=== PATIENT | female | born 1960 | race Caucasian/White ===

== ENCOUNTER 2022-11-22 11:12 | Outpatient (REF) | payer OTHER, SELFPAY ==
[2022-11-22 13:15] LABS: Alanine Aminotransferase 18 U/L (0-31); Albumin Level 4.6 g/dL (3.5-5.0); Alkaline Phosphatase 75 U/L (39-117); Anion Gap 13 (12-20); Aspartate Amino Transferase 20 U/L (5-31); Bilirubin Total 0.6 mg/dL (0.0-1.0); Blood Urea Nitrogen 15 mg/dL (9-16); Calcium 9.8 mg/dL (8.4-10.2); Carbon Dioxide 27 mmol/L (22-29); Chloride 103 mmol/L (96-108); Cholesterol 199 mg/dL; Estimated Glomerular Filt Rate > 60; Glucose Fasting 102 mg/dL (60-99); HDL Cholesterol 62 mg/dL; LDL Cholesterol Calculated 122 mg/dl; Potassium 4.1 mmol/L (3.3-5.1); Sodium 139 mmol/L (135-145); Triglycerides 79 mg/dL
[2022-11-27 14:53] LABS: Apolipoprotein B 93 mg/dL (<90)
== END 2022-11-22 11:13 | disposition home or self-care (01) ==
LOC: HO.LAB 11:12
PROVIDERS: PCP Internal Medicine; Visit Provider Internal Medicine
DX: Z00.00 Encounter for general adult medical examination without abnormal findings (principal); E78.5 Hyperlipidemia, unspecified; R73.9 Hyperglycemia, unspecified; M06.9 Rheumatoid arthritis, unspecified; E55.9 Vitamin D deficiency, unspecified; R25.1 Tremor, unspecified
CPT/HCPCS: 36415; 80053; 80061; 82172; 82306

== ENCOUNTER 2023-03-13 09:37 | Outpatient (REF) | payer OTHER, SELFPAY ==
[2023-03-13 10:01] LABS: MANUAL DIFF FLAG NO
[2023-03-13 10:36] LABS: Basophils Percent Auto 0.4 % (0-2); Eosinophils Absolute Auto 0.4 X10*3/uL (0.0-0.4); Eosinophils Percent Auto 8.3 % (0-4); Hematocrit 44.8 % (37.0-47.0); Lymphocytes Absolute Auto 2.1 X10*3/uL (1.2-4.9); Lymphocytes Percent Auto 39.7 % (20-40); Mean Corpuscular HGB Conc 31.3 g/dl (31.0-35.0); Mean Corpuscular Hemoglobin 27.1 pg (27.0-33.0); Mean Corpuscular Volume 86.7 fL (80.0-98.0); Mean Platelet Volume 10.6 fL (9.4-12.3); Monocytes Absolute Auto 0.4 X10*3/uL (0.1-1.2); Monocytes Percent Auto 7.8 % (2-11); Neutrophils Absolute Auto 2.3 x10*3/uL (2.0-8.3); Neutrophils Percent Auto 43.8 % (45-73); Platelet Count 294 X10*3/uL (160-400); Red Blood Count 5.17 X10*6/uL (4.20-5.50); Red Cell Distribution Width 13.3 % (11.0-16.0); White Blood Count 5.3 X10*3/uL (4.8-10.8)
[2023-03-13 11:00] LABS: Estimated Average Glucose 97 mg/dL
[2023-03-13 11:16] LABS: C Reactive Protein 0.26 mg/dL (< or = 0.50); Erythrocyte Sedimentation Rate 10 MM/HR (0-20)
[2023-03-13 11:21] LABS: Alanine Aminotransferase 20 U/L (0-31); Albumin Level 4.5 g/dL (3.5-5.0); Alkaline Phosphatase 86 U/L (39-117); Anion Gap 13 (12-20); Aspartate Amino Transferase 22 U/L (5-31); Bilirubin Total 0.6 mg/dL (0.0-1.0); Blood Urea Nitrogen 13 mg/dL (9-16); Carbon Dioxide 28 mmol/L (22-29); Chloride 104 mmol/L (96-108); Cholesterol 209 mg/dL; Estimated Glomerular Filt Rate > 60; Glucose Fasting 99 mg/dL (60-99); HDL Cholesterol 59 mg/dL; LDL Cholesterol Calculated 133 mg/dl; Potassium 4.4 mmol/L (3.3-5.1); Sodium 141 mmol/L (135-145); Total Protein 6.9 g/dL (6.5-8.0); Triglycerides 85 mg/dL
[2023-03-13 11:27] LABS: Appearance Urine Clear; Color Urine Yellow; Glucose Urine UA Negative (Negative); Leukocyte Esterase Urine Negative (Negative); Nitrite Urine Negative (Negative); PH 6.5 (5.0-9.0); Specific Gravity - Urine <= 1.005 (1.005-1.025); Urine Blood Negative (Negative); Urine Ketones Negative (Negative); Urine Protein Negative (Neg-Trace)
[2023-03-13 11:35] LABS: Bacteria Urine None Seen (None Seen); Hyaline Casts Urine 0-2 /LPF (0-2); RBC Urine 0-2 /HPF (0-2); Squamous Epithelial Cell Urine 0-2 /HPF (0-2); WBC Urine 0-5 /HPF (0-5)
[2023-03-13 12:37] LABS: Creatinine Urine 13.17 mg/dL; Microalbumin Urine < 5.0 mg/L
== END 2023-03-13 09:38 | disposition home or self-care (01) ==
LOC: HO.LAB 09:37
PROVIDERS: Absent Provider Internal Medicine; PCP Internal Medicine; Visit Provider Internal Medicine Rheumatology
DX: Z00.00 Encounter for general adult medical examination without abnormal findings (principal); R73.9 Hyperglycemia, unspecified; E78.5 Hyperlipidemia, unspecified; E55.9 Vitamin D deficiency, unspecified; M06.9 Rheumatoid arthritis, unspecified; Z79.899 Other long term (current) drug therapy
CPT/HCPCS: 36415; 80053; 80061; 81001; 82043; 83036; 85025; 85652; 86140

== ENCOUNTER 2023-09-18 08:44 | Outpatient (REF) | payer OTHER, SELFPAY ==
[2023-09-18 09:15] LABS: MANUAL DIFF FLAG NO
[2023-09-18 09:27] LABS: Basophils Percent Auto 0.5 % (0-2); Eosinophils Absolute Auto 0.1 X10*3/uL (0.0-0.4); Hematocrit 44.2 % (37.0-47.0); Hemoglobin 13.8 g/dl (12.0-16.0); Imm Gran Abs Auto 0.01 X10*3/uL (0.00-0.03); Imm Gran Pct Auto 0.2 % (0.0-0.4); Lymphocytes Absolute Auto 1.9 X10*3/uL (1.2-4.9); Lymphocytes Percent Auto 44.9 % (20-40); Mean Corpuscular HGB Conc 31.2 g/dl (31.0-35.0); Mean Corpuscular Hemoglobin 27.2 pg (27.0-33.0); Mean Corpuscular Volume 87.2 fL (80.0-98.0); Monocytes Absolute Auto 0.3 X10*3/uL (0.1-1.2); Monocytes Percent Auto 7.2 % (2-11); Neutrophils Absolute Auto 1.9 x10*3/uL (2.0-8.3); Neutrophils Percent Auto 44.2 % (45-73); Platelet Count 246 X10*3/uL (160-400); Red Blood Count 5.07 X10*6/uL (4.20-5.50); Red Cell Distribution Width 13.2 % (11.0-16.0); White Blood Count 4.3 X10*3/uL (4.8-10.8)
[2023-09-18 09:49] LABS: Alanine Aminotransferase 19 U/L (0-31); Albumin Level 4.3 g/dL (3.5-5.0); Alkaline Phosphatase 64 U/L (39-117); Anion Gap 10 (12-20); Aspartate Amino Transferase 20 U/L (5-31); Bilirubin Total 0.6 mg/dL (0.0-1.0); Blood Urea Nitrogen 18 mg/dL (9-16); C Reactive Protein 0.27 mg/dL (< or = 0.50); Calcium 9.6 mg/dL (8.4-10.2); Carbon Dioxide 29 mmol/L (22-29); Chloride 107 mmol/L (96-108); Cholesterol 181 mg/dL (<200); Estimated Glomerular Filt Rate > 60; Glucose Fasting 97 mg/dL (60-99); HDL Cholesterol 71 mg/dL (>40); LDL Cholesterol Calculated 101 mg/dL (<100); Potassium 4.1 mmol/L (3.3-5.1); Sodium 142 mmol/L (135-145); Total Protein 7.2 g/dL (6.5-8.0); Triglycerides 49 mg/dL (<150)
[2023-09-18 09:53] LABS: Alanine Aminotransferase 18 U/L (0-31); Aspartate Amino Transferase 19 U/L (5-31); Estimated Glomerular Filt Rate > 60
[2023-09-18 10:08] LABS: Vitamin D 25-OH Total 54.3 ng/mL (>30)
[2023-09-18 10:20] LABS: Erythrocyte Sedimentation Rate 8 MM/HR (0-20)
== END 2023-09-18 08:45 | disposition home or self-care (01) ==
LOC: HO.LAB 08:44
PROVIDERS: Absent Provider Internal Medicine Rheumatology; PCP Internal Medicine; Visit Provider Internal Medicine
DX: M05.9 Rheumatoid arthritis with rheumatoid factor, unspecified (principal); E55.9 Vitamin D deficiency, unspecified; R73.9 Hyperglycemia, unspecified; E78.5 Hyperlipidemia, unspecified
CPT/HCPCS: 36415; 80053; 80061; 82306; 82565; 84450; 84460; 85025; 85652; 86140

== ENCOUNTER 2023-09-25 10:16 | Outpatient (AMB) | payer OTHER, SELFPAY ==
--- NOTE | 2023-09-25 10:34 | MHC.PC.OV ---
Vital Signs 09/25/23 10:38 Height 5 ft 6 in Weight 143 lb BMI 23.1 BP 112/72 Blood Pressure Location Rt brachial Position Sitting Pulse 70 Pulse Source Pulse Oximeter Pulse Oximetry (%) 98 Oxygen Delivery Method Room Air Intake Visit Reasons: PE Allergies clarithromycin [From Biaxin] Allergy (Unknown, Verified 09/25/23 10:38) Insomnia Medication List - Last Reconciled 09/25/23 by Ling Kellogg MD cholecalciferol (vitamin D3) 25 mcg PO DAILY estradiol 0.01%(0.1mg/gram) (Estrace) 1 g vaginal 2XW leflunomide 10 mg PO DAILY magnesium oxide 500 mg PO DAILY mv,Ca,ir,Jy-GA-nzz-gel-stephen-PAB (Body, Hair, Skin and Nails) PO omega-3 fatty acids 500 mg PO DAILY ondansetron HCl 4 mg PO BEDTIME PRN 4 days pravastatin 40 mg PO DAILY propranolol 20 mg PO BID Tobacco use date assessed: 03/18/23 Fall risk assessment: No Falls in past year Last assessed Fall Risk: 09/25/23 Dental Screening Dental Screen Date: 09/25/23 Did you have a dental visit in the last 12 months?: Yes Did you have a dental problem in the last 6 months where you did not have access to dental care?: No Was dental information given to patient?: Patient has dentist HPI PE HPI Details Pt presents for PE PFSH Medical History Tremor Normal breast exam Carpal tunnel syndrome Palpitations Anxiety Hyperglycemia Right hand weakness Hyperlipidemia Annual physical exam Osteoarthritis Rheumatoid arthritis Surgical History H/O colonoscopy Social History Housing: House Alcohol intake: current Alcohol intake frequency: a few times a week Patient Tobacco Use Status: Never used Tobacco e-Cigarette/Vaping Use: Never Used Current occupational status: retired Cognitive needs: No Hearing needs: No Vision needs: Yes Questionnaire Thrive Questionnaire Date Thrive assessed: 09/25/23 I am a: Patient What is your living situation today?: I have a steady place to live Within the past 12 months, did the food you bought not last and you didn't have the money to get more?: Never true Within the past 12 months, did you worry whether your food would run out before you got money to buy more?: Never true Do you have trouble paying for medicines?: No Do you have trouble getting transportation to medical appointments?: No Do you have trouble paying your heating and electricity bill?: No Do you have trouble taking care of your child, family member or friend?: No Do you have trouble with day-to-day activities such as bathing, preparing meals, shopping, managing finances, etc.?: No Are you currently unemployed and looking for a job?: No Are you interested in more education?: No AUDIT C Alcohol Use Questionnaire (AUDIT-C) 1. How often do you have a drink containing alcohol?: Monthly or less 2. How many drinks containing alcohol do you have on a typical day when you are drinking?: 1 or 2 3. How often do you have six or more drinks on one occasion?: Never Total Score: 1 Score Reviewed/Action Taken: No JEANNIE-7 AMB Questionnaire JEANNIE-7 Date JEANNIE - 7 assessed: 09/25/23 Source: Developed by Drs. Iron Garza, Taniya Lyons, John Reid and colleagues, with an educational allan from [employer]. JEANNIE-7 Assessment Billing JEANNIE-7 Assessment Tool: pt declined-do not bill Review of Systems Const All systems reviewed & are unremarkable except as noted in HPI and below Reports no additional complaints Eyes Reports no additional complaints ENT Reports no additional complaints Card Reports no additional complaints Resp Reports no additional complaints GI Reports no additional complaints Reports no additional complaints Physical exam (Primary Care) Vital Signs: Last Vital Signs Pulse 70 09/25/23 10:38 BP 112/72 09/25/23 10:38 Pulse Ox 98 09/25/23 10:38 Oxygen Delivery Method Room Air 09/25/23 10:38 BMI result Body Mass Index 23.1 Tobacco/Smoking Status: Tobacco use Status Tobacco use date assessed 03/18/23 09/25/23 10:35 Patient Tobacco Use Status Never used Tobacco 09/25/23 10:35 e-Cigarette/Vaping Use Never Used 09/25/23 10:35 Thrive Assessment: Date of Thrive Assessment Date Thrive assessed 09/25/23 09/25/23 11:10 Const General: no acute distress HENMT Ears: hearing grossly normal bilaterally Mouth: Normal oral and palatal mucosa present Eyes General: appearance normal, both eyes and all related structures Neck Neck: Yes no lymphadenopathy and Yes supple Resp Effort & Inspection: normal respiratory effort Auscultation: clear to auscultation bilaterally Cardio Rhythm: regular rhythm Heart sounds: S1 normal heart sound present and S2 normal heart sound present GI Inspection: Yes normal to inspection Palpation (GI): Soft to palpation Percussion: Yes normal to percussion Auscultation: normal bowel sounds Assessment and Plan Assessment & Plan (1) Hyperglycemia: Code(s): R73.9 - Hyperglycemia, unspecified Plan: CONTINUE ADA DIET REGULAR EXERCISE FOLLOW-UP IN 6 MONTHS WITH A FASTING LABS BEFORE (2) Annual physical exam: Code(s): Z00.00 - Encounter for general adult medical examination without abnormal findings Plan: Well-balanced diet and regular physical activity discussed with the patient. She is up-to-date with the mammogram colonoscopy and Pap smear by [employer] (3) Hyperlipidemia: Code(s): E78.5 - Hyperlipidemia, unspecified Plan: Continue pravastatin (4) Vitamin D deficiency: Code(s): E55.9 - Vitamin D deficiency, unspecified Plan: Continue vitamin-D Orders: Orders Comprehensive [place]. Panel Fast 6 Months E55.9 - Vitamin D deficiency, unspecified, E78.5 - Hyperlipidemia, unspecified, R73.9 - Hyperglycemia, unspecified, Z00.00 - Encounter for general adult medical examination without abnormal findings Complete Blood Count Auto Diff 6 Months E55.9 - Vitamin D deficiency, unspecified, E78.5 - Hyperlipidemia, unspecified, R73.9 - Hyperglycemia, unspecified, Z00.00 - Encounter for general adult medical examination without abnormal findings Lipid Panel 6 Months E55.9 - Vitamin D deficiency, unspecified, E78.5 - Hyperlipidemia, unspecified, R73.9 - Hyperglycemia, unspecified, Z00.00 - Encounter for general adult medical examination without abnormal findings TSH reflex Free T4 6 Months E55.9 - Vitamin D deficiency, unspecified, E78.5 - Hyperlipidemia, unspecified, R73.9 - Hyperglycemia, unspecified, Z00.00 - Encounter for general adult medical examination without abnormal findings Hemoglobin A1c 6 Months R73.9 - Hyperglycemia, unspecified Medications: New propranolol 20 mg PO BID 60 tabs 2RF Refilled pravastatin 40 mg PO DAILY 90 tabs 3RF Coding Level of Care Code Est Pt Prev Care >65y(74483) Diagnoses Hyperglycemia R73.9 Annual physical exam Z00.00 Hyperlipidemia E78.5 Vitamin D deficiency E55.9
[2023-09-25 10:38] VITALS: BP 112/72; PULSE 70; O2SAT 98; BMI 23.1
== END 2023-09-25 12:55 | disposition home or self-care (01) ==
PROVIDERS: Visit Provider Internal Medicine
DX: R73.9 Hyperglycemia, unspecified (principal); Z00.00 Encounter for general adult medical examination without abnormal findings; E78.5 Hyperlipidemia, unspecified; E55.9 Vitamin D deficiency, unspecified
CPT/HCPCS: 99397

== ENCOUNTER 2024-03-19 09:26 | Outpatient (REF) | payer OTHER, SELFPAY ==
[2024-03-19 09:54] LABS: MANUAL DIFF FLAG NO
[2024-03-19 10:18] LABS: Basophils Percent Auto 0.2 % (0-2); Basophils Percent Auto 0.5 % (0-2); Eosinophils Absolute Auto 0.1 X10*3/uL (0.0-0.4); Eosinophils Percent Auto 1.8 % (0-4); Eosinophils Percent Auto 2.2 % (0-4); Hematocrit 45.5 % (37.0-47.0); Hematocrit 46.4 % (37.0-47.0); Hemoglobin 14.4 g/dl (12.0-16.0); Hemoglobin 14.6 g/dl (12.0-16.0); Imm Gran Abs Auto 0.01 X10*3/uL (0.00-0.03); Imm Gran Pct Auto 0.2 % (0.0-0.4); Lymphocytes Absolute Auto 1.5 X10*3/uL (1.2-4.9); Lymphocytes Absolute Auto 1.6 X10*3/uL (1.2-4.9); Lymphocytes Percent Auto 35.5 % (20-40); Lymphocytes Percent Auto 36.5 % (20-40); Mean Corpuscular HGB Conc 31.5 g/dl (31.0-35.0); Mean Corpuscular HGB Conc 31.6 g/dl (31.0-35.0); Mean Corpuscular Hemoglobin 27.3 pg (27.0-33.0); Mean Corpuscular Hemoglobin 27.5 pg (27.0-33.0); Mean Corpuscular Volume 86.8 fL (80.0-98.0); Mean Corpuscular Volume 86.9 fL (80.0-98.0); Mean Platelet Volume 9.8 fL (9.4-12.3); Monocytes Absolute Auto 0.3 X10*3/uL (0.1-1.2); Monocytes Percent Auto 7.4 % (2-11); Monocytes Percent Auto 7.9 % (2-11); Neutrophils Absolute Auto 2.2 x10*3/uL (2.0-8.3); Neutrophils Absolute Auto 2.3 x10*3/uL (2.0-8.3); Neutrophils Percent Auto 53.1 % (45-73); Neutrophils Percent Auto 54.5 % (45-73); Platelet Count 289 X10*3/uL (160-400); Platelet Count 291 X10*3/uL (160-400); Red Blood Count 5.24 X10*6/uL (4.20-5.50); Red Blood Count 5.34 X10*6/uL (4.20-5.50); Red Cell Distribution Width 13.1 % (11.0-16.0); Red Cell Distribution Width 13.2 % (11.0-16.0); White Blood Count 4.1 X10*3/uL (4.8-10.8); White Blood Count 4.3 X10*3/uL (4.8-10.8)
[2024-03-19 10:33] LABS: Estimated Average Glucose 103 mg/dL; Hemoglobin A1c % 5.2 % (<6.0)
[2024-03-19 10:52] LABS: Alanine Aminotransferase 27 U/L (0-31); Aspartate Amino Transferase 23 U/L (5-31); C Reactive Protein 0.24 mg/dL (< or = 0.50); Estimated Glomerular Filt Rate > 60
[2024-03-19 10:58] LABS: Erythrocyte Sedimentation Rate 9 MM/HR (0-20)
[2024-03-19 11:06] LABS: Alanine Aminotransferase 25 U/L (0-31); Albumin Level 4.7 g/dL (3.5-5.0); Alkaline Phosphatase 73 U/L (39-117); Anion Gap 14 (12-20); Aspartate Amino Transferase 24 U/L (5-31); Bilirubin Total 0.4 mg/dL (0.0-1.0); Blood Urea Nitrogen 16 mg/dL (9-16); Calcium 10.3 mg/dL (8.4-10.2); Carbon Dioxide 27 mmol/L (22-29); Chloride 104 mmol/L (96-108); Cholesterol 189 mg/dL (<200); Estimated Glomerular Filt Rate > 60; Glucose Fasting 102 mg/dL (60-99); HDL Cholesterol 75 mg/dL (>40); LDL Cholesterol Calculated 99 mg/dL (<100); Potassium 4.1 mmol/L (3.3-5.1); Sodium 141 mmol/L (135-145); Total Protein 7.8 g/dL (6.5-8.0); Triglycerides 76 mg/dL (<150)
[2024-03-19 11:14] LABS: TSH reflex Free T4 1.95 uIU/mL (0.32-4.0)
== END 2024-03-19 09:27 | disposition home or self-care (01) ==
LOC: HO.LAB 09:26
PROVIDERS: Absent Provider Internal Medicine Rheumatology; Visit Provider Internal Medicine
DX: Z00.00 Encounter for general adult medical examination without abnormal findings (principal); R73.9 Hyperglycemia, unspecified; E78.5 Hyperlipidemia, unspecified; E55.9 Vitamin D deficiency, unspecified; M06.9 Rheumatoid arthritis, unspecified
CPT/HCPCS: 36415; 80053; 80061; 82565; 83036; 84443; 84450; 84460; 85025; 85652; 86140

== ENCOUNTER 2024-03-26 10:54 | Outpatient (AMB) | payer OTHER, SELFPAY ==
--- NOTE | 2024-03-26 10:59 | MHC.PC.OV ---
Vital Signs 03/26/24 11:02 Height 5 ft 6 in Weight 150 lb BMI 24.2 BP 118/66 Blood Pressure Location Rt brachial Position Sitting Pulse 68 Pulse Source Pulse Oximeter Pulse Oximetry (%) 98 Oxygen Delivery Method Room Air Intake Visit Reasons: 6 month fu Intake Note: Pt is here today for 6 months follow up visit. Allergies clarithromycin [From Biaxin] Allergy (Unknown, Verified 03/26/24 11:06) Insomnia Medication List - Last Reconciled 03/26/24 by Ling Kellogg MD cholecalciferol (vitamin D3) 25 mcg PO DAILY estradiol 0.01%(0.1mg/gram) (Estrace) 1 g vaginal 2XW famotidine (Pepcid) 20 mg PO BEDTIME leflunomide 10 mg PO DAILY magnesium oxide 500 mg PO DAILY mv,Ca,ir,Vi-DQ-kye-gel-stephen-PAB (Body, Hair, Skin and Nails) PO omega-3 fatty acids 500 mg PO DAILY ondansetron HCl 4 mg PO BEDTIME PRN 4 days pravastatin 40 mg PO DAILY propranolol 20 mg PO BID Tobacco use date assessed: 03/26/24 Fall risk assessment: No Falls in past year Last assessed Fall Risk: 03/26/24 Dental Screening Dental Screen Date: 03/26/24 Did you have a dental visit in the last 12 months?: Yes Did you have a dental problem in the last 6 months where you did not have access to dental care?: No Was dental information given to patient?: Patient has dentist HPI 6 month fu HPI Details Pt presents for f/u hyperlipid, stable on Pravastatin. Pt patient reports episodes of heartburn and epigastric discomfort on and off worse after eating or drinking coffee worse for the last 2 months. She denies dysphagia odynophagia hematochezia melena change in the bowel habits. She has been under lot of stress because her daughter is deployed to [employer] and another daughter is getting in June. [facility] Medical History Tremor Normal breast exam Carpal tunnel syndrome Palpitations Anxiety Hyperglycemia Right hand weakness Hyperlipidemia Annual physical exam Osteoarthritis Rheumatoid arthritis Surgical History H/O colonoscopy Social History Housing: House Alcohol intake: current Alcohol intake frequency: a few times a week Patient Tobacco Use Status: Never used Tobacco e-Cigarette/Vaping Use: Never Used service: No Current occupational status: retired Cognitive needs: No Hearing needs: No Vision needs: Yes Questionnaire PHQ-9 Over the last 2 weeks, how often have you been bothered by any of the following problems? 1. Little interest or pleasure in doing things: not at all 2. Feeling down, depressed, or hopeless: not at all 3. Trouble falling or staying asleep, or sleeping too much: not at all 4. Feeling tired or having little energy: not at all 5. Poor appetite or overeating: not at all 6. Feeling bad about yourself - or that you are a failure or have let yourself or your family down: not at all 7. Trouble concentrating on things, such as reading the newspaper or watching television: not at all 8. Moving or speaking so slowly that other people could have noticed. Or the opposite - being so fidgety or restless that you have been moving around a lot more than usual: not at all 9. Thoughts that you would be better off or of hurting yourself in some way: not at all Total score: 0 Depression Screening Interpretation: Negative Depression Screening Done: Yes Source: Developed by Drs. Iron Garza, Taniya Lyons, John Reid and colleagues, with an educational allan from [email or web address]. Thrive Questionnaire Date Thrive assessed: 03/26/24 I am a: Patient What is your living situation today?: I have a steady place to live Within the past 12 months, did the food you bought not last and you didn't have the money to get more?: Never true Within the past 12 months, did you worry whether your food would run out before you got money to buy more?: Never true Do you have trouble paying for medicines?: No Do you have trouble getting transportation to medical appointments?: No Do you have trouble paying your heating and electricity bill?: No Do you have trouble taking care of your child, family member or friend?: No Do you have trouble with day-to-day activities such as bathing, preparing meals, shopping, managing finances, etc.?: No Are you currently unemployed and looking for a job?: No Are you interested in more education?: No Please select the resources that you would like help with: None THRIVE Score: 0 AUDIT C Alcohol Use Questionnaire (AUDIT-C) 1. How often do you have a drink containing alcohol?: 2-4 times a month 2. How many drinks containing alcohol do you have on a typical day when you are drinking?: 1 or 2 3. How often do you have six or more drinks on one occasion?: Never Total Score: 2 JEANNIE-7 AMB Questionnaire JEANNIE-7 Date JEANNIE - 7 assessed: 03/26/24 Feeling nervous, anxious, or on edge: 0 = Not at all Not being able to stop or control worryin = Not at all Worrying too much about different things: 0 = Not at all Trouble relaxin = Not at all Being so restless that it is hard to sit still: 0 = Not at all Becoming easily annoyed or irritable: 0 = Not at all Feeling afraid as if something awful might happen: 0 = Not at all Total JEANNIE-7 score (0-4 normal; 5-9 mild; 10-14 moderate; 15-21 severe): 0 Source: Developed by Drs. Iron Garza, Taniya Lyons, John Reid and colleagues, with an educational allan from [email or web address]. Review of Systems Const All systems reviewed & are unremarkable except as noted in HPI and below Reports no additional complaints Eyes Reports no additional complaints ENT Reports no additional complaints Card Reports no additional complaints Resp Reports no additional complaints GI Reports no additional complaints Reports no additional complaints Physical exam (Primary Care) Vital Signs: Last Vital Signs Pulse 68 03/26/24 11:02 BP 118/66 03/26/24 11:02 Pulse Ox 98 03/26/24 11:02 Oxygen Delivery Method Room Air 03/26/24 11:02 BMI result Body Mass Index 24.2 Tobacco/Smoking Status: Tobacco use Status Tobacco use date assessed 03/26/24 03/26/24 11:06 Patient Tobacco Use Status Never used Tobacco 03/26/24 11:06 e-Cigarette/Vaping Use Never Used 03/26/24 11:01 PHQ-9: PHQ-9 Score PHQ-9: Total score 0 03/26/24 11:15 Depression Screening Interpretation: Negative Thrive Assessment: Date of Thrive Assessment Date Thrive assessed 03/26/24 03/26/24 11:10 Const General: no acute distress HENMT Head: Yes normal to inspection General nose exam: Normal external nose present Eyes General: appearance normal, both eyes and all related structures Neck Neck: Yes no lymphadenopathy and Yes supple Resp Effort & Inspection: normal respiratory effort Auscultation: clear to auscultation bilaterally Cardio Rhythm: regular rhythm Heart sounds: S1 normal heart sound present and S2 normal heart sound present GI Inspection: Yes normal to inspection Palpation (GI): Soft to palpation Percussion: Yes normal to percussion Auscultation: normal bowel sounds Assessment and Plan Assessment & Plan (1) GERD (gastroesophageal reflux disease): Code(s): K21.9 - Gastro-esophageal reflux disease without esophagitis Plan: ANTI GERD DIET DISCUSSED WITH THE PATIENT SHE WILL TRY PEPCID 20 MG FOR 1 MONTH AND IF HER SYMPTOMS PERSIST SHE WILL BE REFERRED TO GI. (2) Rheumatoid arthritis: Comment: f/u [facility] Code(s): M06.9 - Rheumatoid arthritis, unspecified Plan: Continue current treatment and follow-up with rheumatology (3) Hyperlipidemia: Code(s): E78.5 - Hyperlipidemia, unspecified Plan: Continue pravastatin follow-up for physical in October or p.r.n. Orders: Orders Comprehensive [place]. Panel Fast 6 Months E78.5 - Hyperlipidemia, unspecified, R73.9 - Hyperglycemia, unspecified, Z00.00 - Encounter for general adult medical examination without abnormal findings Complete Blood Count Auto Diff 6 Months E78.5 - Hyperlipidemia, unspecified, R73.9 - Hyperglycemia, unspecified, Z00.00 - Encounter for general adult medical examination without abnormal findings Lipid Panel 6 Months E78.5 - Hyperlipidemia, unspecified, R73.9 - Hyperglycemia, unspecified, Z00.00 - Encounter for general adult medical examination without abnormal findings TSH reflex Free T4 6 Months E78.5 - Hyperlipidemia, unspecified, R73.9 - Hyperglycemia, unspecified, Z00.00 - Encounter for general adult medical examination without abnormal findings Hemoglobin A1c 6 Months E78.5 - Hyperlipidemia, unspecified, R73.9 - Hyperglycemia, unspecified, Z00.00 - Encounter for general adult medical examination without abnormal findings Medications: New famotidine (Pepcid) 20 mg PO BEDTIME 30 tabs 1RF Coding Level of Care Code Est Pt Level 4 (40952) Diagnoses GERD (gastroesophageal reflux disease) K21.9 Rheumatoid arthritis M06.9 Hyperlipidemia E78.5
[2024-03-26 11:02] VITALS: BP 118/66; PULSE 68; O2SAT 98; BMI 24.2
== END 2024-03-26 14:19 | disposition home or self-care (01) ==
PROVIDERS: PCP Internal Medicine; Visit Provider Internal Medicine
DX: K21.9 Gastro-esophageal reflux disease without esophagitis (principal); M06.9 Rheumatoid arthritis, unspecified; E78.5 Hyperlipidemia, unspecified
CPT/HCPCS: 99214

== ENCOUNTER 2024-08-24 10:42 | Outpatient (AMB) | payer MEDICARE, SELFPAY ==
[2024-08-24 10:57] VITALS: BP 126/76; PULSE 80; O2SAT 99; BMI 25.0
--- NOTE | 2024-08-24 10:57 | A.OFFPC_ITS ---
Vital Signs 08/24/24 10:57 Height 5 ft 6 in Weight 155 lb BMI 25.0 BP 126/76 Blood Pressure Location Rt brachial Position Sitting Pulse 80 Pulse Source Pulse Oximeter Pulse Oximetry (%) 99 Oxygen Delivery Method Room Air Intake Visit Reasons: Intermittent chest heaviness, shortness of breath Intake Note: Pt is here today for a sick visit. Pt c/o couple of episodes of SOB and intermittent chest heaviness since June. Pt states that she has been having upper back pain and tingling in her upper back. Allergies clarithromycin [From Biaxin] Allergy (Unknown, Verified 08/24/24 11:23) Insomnia Medication List - Last Reconciled 08/24/24 by Ling Kellogg MD cholecalciferol (vitamin D3) 25 mcg PO DAILY estradiol 0.01%(0.1mg/gram) (Estrace) 1 g vaginal 2XW famotidine (Pepcid) 20 mg PO BEDTIME leflunomide 10 mg PO DAILY magnesium oxide 500 mg PO DAILY mv,Ca,ir,Fu-OT-aii-gel-stephen-PAB (Body, Hair, Skin and Nails) PO omega-3 fatty acids 500 mg PO DAILY ondansetron HCl 4 mg PO BEDTIME PRN 4 days pravastatin 40 mg PO DAILY propranolol 20 mg PO BID Tobacco use date assessed: 08/24/24 Fall risk assessment: No Falls in past year Last assessed Fall Risk: 08/24/24 Dental Screening Dental Screen Date: 03/26/24 HPI Intermittent chest heaviness, shortness of breath HPI Details Pt c/o episodes of intermittent chest heaviness at rest but also with physical activity and and 2 episodes of upper back tingling sensation with lightheaded and SOB lasting a few minutes not related to exertion 2 months ago. Patient is concern about coronary artery disease because of strong family history for coronary artery disease and hyperlipidemia. She usually walks with the dogs for 3 miles but does not do cardiovascular exercises. Pt's daughter got in [place] in June. Patient denies anxiety or increased stress. [facility] Medical History Tremor Normal breast exam Carpal tunnel syndrome Palpitations Anxiety Hyperglycemia Right hand weakness Hyperlipidemia Annual physical exam Osteoarthritis Rheumatoid arthritis Surgical History H/O colonoscopy Family History Father Hypertension History of heart bypass surgery Heart attack Mother Lung cancer Social History Housing: House Alcohol intake: current Alcohol intake frequency: a few times a week Patient Tobacco Use Status: Never used Tobacco e-Cigarette/Vaping Use: Never Used service: No Current occupational status: retired Cognitive needs: No Hearing needs: No Vision needs: Yes Questionnaire Thrive Questionnaire Date Thrive assessed: 08/22/24 I am a: Patient What is your living situation today?: I have a steady place to live Within the past 12 months, did the food you bought not last and you didn't have the money to get more?: Never true Within the past 12 months, did you worry whether your food would run out before you got money to buy more?: Never true Do you have trouble getting transportation to medical appointments?: No Do you have trouble paying your heating and electricity bill?: No Do you have trouble with day-to-day activities such as bathing, preparing meals, shopping, managing finances, etc.?: No Please select the resources that you would like help with: None Currently or been in a relationship where the following occur: No concerns reported THRIVE Score: 0 AUDIT C Alcohol Use Questionnaire (AUDIT-C) 1. How often do you have a drink containing alcohol?: 2-4 times a month 2. How many drinks containing alcohol do you have on a typical day when you are drinking?: 1 or 2 3. How often do you have six or more drinks on one occasion?: Never Total Score: 2 JEANNIE-7 AMB Questionnaire JEANNIE-7 Date JEANNIE - 7 assessed: 03/26/24 Feeling nervous, anxious, or on edge: 0 = Not at all Not being able to stop or control worryin = Not at all Trouble relaxin = Not at all Being so restless that it is hard to sit still: 0 = Not at all Becoming easily annoyed or irritable: 0 = Not at all Feeling afraid as if something awful might happen: 0 = Not at all Source: Developed by Drs. Iron Garza, Taniya Lyons, John Reid and colleagues, with an educational allan from [email or web address]. Review of Systems Const All systems reviewed & are unremarkable except as noted in HPI and below Reports no additional complaints Eyes Reports no additional complaints ENT Reports no additional complaints Card Reports no additional complaints Resp Reports no additional complaints GI Reports no additional complaints Reports no additional complaints Physical exam (Primary Care) Vital Signs: Last Vital Signs Pulse 80 08/24/24 10:57 BP 126/76 08/24/24 10:57 Pulse Ox 99 08/24/24 10:57 Oxygen Delivery Method Room Air 08/24/24 10:57 BMI result Body Mass Index 25.0 Tobacco/Smoking Status: Tobacco use Status Tobacco use date assessed 08/24/24 08/24/24 11:26 Patient Tobacco Use Status Never used Tobacco 08/24/24 11:26 e-Cigarette/Vaping Use Never Used 08/24/24 10:57 Thrive Assessment: Date of Thrive Assessment Date Thrive assessed 08/22/24 08/24/24 10:57 Currently or been in a relationship where the following occur: No concerns reported Const General: no acute distress HENMT Head: Yes normal to inspection Ears: hearing grossly normal bilaterally Face and sinus: Yes normal facial exam Throat: Yes posterior oropharynx normal Eyes General: appearance normal, both eyes and all related structures Resp Effort & Inspection: normal respiratory effort Auscultation: clear to auscultation bilaterally Cardio Rhythm: regular rhythm Heart sounds: S1 normal heart sound present and S2 normal heart sound present GI Inspection: Yes normal to inspection Coding Level of Care Code Est Pt Level 4 (64682) Diagnoses Angina at rest I20.89 GERD (gastroesophageal reflux disease) K21.9 Hyperlipidemia E78.5 Rheumatoid arthritis M06.9 Assessment & Plan Assessment & Plan (1) Angina at rest: Code(s): I20.89 - Other forms of angina pectoris Category: Medical Plan: EKG showed normal sinus rhythm LVH no acute ST-T changes, will obtain nuclear stress test to evaluate for ischemia (2) GERD (gastroesophageal reflux disease): Code(s): K21.9 - Gastro-esophageal reflux disease without esophagitis Category: Medical Plan: Continue famotidine p.r.n. (3) Hyperlipidemia: Code(s): E78.5 - Hyperlipidemia, unspecified Category: Medical Plan: Continue pravastatin (4) Rheumatoid arthritis: Comment: f/u [facility] Code(s): M06.9 - Rheumatoid arthritis, unspecified Category: Medical Plan: Follow-up with rheumatology Orders: Orders CA lexiscan stress w chirag Today I20.89 - Other forms of angina pectoris CA stress test Today I20.89 - Other forms of angina pectoris
== END 2024-08-24 15:00 | disposition home or self-care (01) ==
PROVIDERS: PCP Internal Medicine; Visit Provider Internal Medicine
DX: I20.89 Other forms of angina pectoris (principal); K21.9 Gastro-esophageal reflux disease without esophagitis; E78.5 Hyperlipidemia, unspecified; M06.9 Rheumatoid arthritis, unspecified

== ENCOUNTER → 2024-08-24 10:42 | Outpatient (BNVA) | payer OTHER, SELFPAY | PROVIDERS: PCP Internal Medicine; Visit Provider Internal Medicine | DX: I20.89 Other forms of angina pectoris (principal); K21.9 Gastro-esophageal reflux disease without esophagitis; E78.5 Hyperlipidemia, unspecified; M06.9 Rheumatoid arthritis, unspecified; Z79.899 Other long term (current) drug therapy | CPT/HCPCS: 99212 ==

== ENCOUNTER 2024-10-22 09:50 | Outpatient (REF) | payer MEDICARE, SELFPAY ==
[2024-10-22 10:03] LABS: MANUAL DIFF FLAG NO
[2024-10-22 10:43] LABS: Basophils Percent Auto 0.4 % (0-2); Eosinophils Absolute Auto 0.1 X10*3/uL (0.0-0.4); Eosinophils Percent Auto 2.3 % (0-4); Hematocrit 41.3 % (37.0-47.0); Hemoglobin 13.1 g/dl (12.0-16.0); Imm Gran Abs Auto 0.03 X10*3/uL (0.00-0.03); Imm Gran Pct Auto 0.6 % (0.0-0.4); Lymphocytes Absolute Auto 1.7 X10*3/uL (1.2-4.9); Lymphocytes Percent Auto 32.7 % (20-40); Mean Corpuscular HGB Conc 31.7 g/dl (31.0-35.0); Mean Corpuscular Hemoglobin 26.8 pg (27.0-33.0); Mean Corpuscular Volume 84.6 fL (80.0-98.0); Mean Platelet Volume 9.7 fL (9.4-12.3); Monocytes Absolute Auto 0.5 X10*3/uL (0.1-1.2); Monocytes Percent Auto 9.2 % (2-11); Neutrophils Absolute Auto 2.8 x10*3/uL (2.0-8.3); Neutrophils Percent Auto 54.8 % (45-73); Platelet Count 304 X10*3/uL (160-400); Red Blood Count 4.88 X10*6/uL (4.20-5.50); Red Cell Distribution Width 12.9 % (11.0-16.0); White Blood Count 5.1 X10*3/uL (4.8-10.8)
[2024-10-22 11:01] LABS: Estimated Average Glucose 100 mg/dL; Hemoglobin A1C 100.1875 umol/L; Hemoglobin A1c % 5.1 % (<6.0); Total Hemoglobin (HGBA1C) 3153.0624 umol/L
[2024-10-22 11:29] LABS: Alanine Aminotransferase 27 U/L (0-31); Albumin Level 4.2 g/dL (3.5-5.0); Alkaline Phosphatase 105 U/L (39-117); Anion Gap 13 (12-20); Aspartate Amino Transferase 27 U/L (5-31); Bilirubin Total 0.4 mg/dL (0.0-1.0); Blood Urea Nitrogen 12 mg/dL (9-16); Calcium 10.2 mg/dL (8.4-10.2); Carbon Dioxide 29 mmol/L (22-29); Chloride 103 mmol/L (96-108); Cholesterol 171 mg/dL (<200); Estimated Glomerular Filt Rate > 60; Glucose Fasting 106 mg/dL (60-99); HDL Cholesterol 59 mg/dL (>40); LDL Cholesterol Calculated 96 mg/dL (<100); Potassium 4.1 mmol/L (3.3-5.1); Sodium 141 mmol/L (135-145); TSH reflex Free T4 2.16 uIU/mL (0.32-4.0); Total Protein 7.7 g/dL (6.5-8.0); Triglycerides 81 mg/dL (<150)
== END 2024-10-22 09:51 | disposition home or self-care (01) ==
LOC: HO.LAB 09:50
PROVIDERS: PCP Internal Medicine; Referring Provider Internal Medicine Rheumatology; Visit Provider Internal Medicine
DX: Z00.00 Encounter for general adult medical examination without abnormal findings (principal); E78.5 Hyperlipidemia, unspecified; R73.9 Hyperglycemia, unspecified
CPT/HCPCS: 36415; 80053; 80061; 83036; 84443; 85025

== ENCOUNTER 2024-10-26 08:14 | Outpatient (AMB) | payer MEDICARE, SELFPAY ==
--- OUTSIDE RECORDS SUMMARY | 2024-10-26 08:16 | XMS_ITS ---
Author Name [facility] Organization Unknown History of Medication Use Medication Directions Dispensed Refills Start Date End Date Stat us propranoloL (INDERAL) 20 mg tablet Take 20 mg by mouth in the morning and 20 mg at noon and 20 mg before bedtime. 09/15/2023 active pravastatin (PRAVACHOL) 40 mg tablet 09/15/2023 active estradioL (ESTRACE) 0.01 % (0.1 mg/gram) vaginal cream Insert 2 g into the vagina in the morning. 09/15/2023 active leflunomide (ARAVA) 20 mg tablet Take 10 mg by mouth. 09/15/2023 active Problems Problem Status Onset Date Problem Type Date of Resoluti on Source Failure of joint fusion, initial encounter ([facility]) active EncounterDiagnosisAct [facility] Ganglion cyst of right foot active [facility]osisAct [facility] Right foot pain active En[facility]Act [facility] Hallux rigidus of right foot active [facility]DiagnosisAct [facility]
[2024-10-26 08:18] VITALS: BP 130/82; PULSE 84; O2SAT 97; BMI 25.2
--- NOTE | 2024-10-26 08:18 | A.OFFPC_ITS ---
Vital Signs 10/26/24 08:18 Height 5 ft 6 in Weight 156 lb BMI 25.2 BP 130/82 Blood Pressure Location Lt brachial Position Sitting Pulse 84 Pulse Source Pulse Oximeter Pulse Oximetry (%) 97 Oxygen Delivery Method Room Air Intake Visit Reasons: Annual PE Intake Note: Pt is here today for PE. Allergies clarithromycin [From Biaxin] Allergy (Unknown, Verified 10/26/24 08:24) Insomnia Medication List - Last Reconciled 10/26/24 by Ling Kellogg MD cholecalciferol (vitamin D3) 25 mcg PO DAILY estradiol 0.01%(0.1mg/gram) (Estrace) 1 g vaginal 2XW famotidine (Pepcid) 20 mg PO BEDTIME leflunomide 10 mg PO DAILY magnesium oxide 500 mg PO DAILY mv,Ca,ir,Lt-NX-tyg-gel-stephen-PAB (Body, Hair, Skin and Nails) PO omega-3 fatty acids 500 mg PO DAILY ondansetron HCl 4 mg PO BEDTIME PRN 4 days pravastatin 40 mg PO DAILY propranolol 20 mg PO BID Tobacco use date assessed: 10/26/24 Fall risk assessment: No Falls in past year Last assessed Fall Risk: 10/26/24 Dental Screening Dental Screen Date: 03/26/24 HPI Annual PE HPI Details Pt presents for PE. She will have a nuclear stress test for episodes of intermittent chest pain and dyspnea on exertion. [facility] [place] Medical History Tremor Normal breast exam Carpal tunnel syndrome Palpitations Anxiety Hyperglycemia Right hand weakness Hyperlipidemia Annual physical exam Osteoarthritis Rheumatoid arthritis Surgical History H/O colonoscopy Family History Father Hypertension History of heart bypass surgery Heart attack Mother Lung cancer Social History Housing: House Alcohol intake: current Alcohol intake frequency: a few times a week Patient Tobacco Use Status: Never used Tobacco e-Cigarette/Vaping Use: Never Used service: No Current occupational status: retired Cognitive needs: No Hearing needs: No Vision needs: Yes Questionnaire PHQ-9 Over the last 2 weeks, how often have you been bothered by any of the following problems? 1. Little interest or pleasure in doing things: not at all 2. Feeling down, depressed, or hopeless: not at all 3. Trouble falling or staying asleep, or sleeping too much: not at all 4. Feeling tired or having little energy: not at all 5. Poor appetite or overeating: not at all 6. Feeling bad about yourself - or that you are a failure or have let yourself or your family down: not at all 7. Trouble concentrating on things, such as reading the newspaper or watching television: not at all 8. Moving or speaking so slowly that other people could have noticed. Or the opposite - being so fidgety or restless that you have been moving around a lot more than usual: not at all 9. Thoughts that you would be better off or of hurting yourself in some way: not at all Total score: 0 Depression Screening Interpretation: Negative Depression Screening Done: Yes 75627 - PHQ-9 Billing: Yes Source: Developed by Drs. Iron Garza, Taniya Lyons, John Reid and colleagues, with an educational allan from [employer]. Thrive Questionnaire Date Thrive assessed: 08/22/24 I am a: Patient What is your living situation today?: I have a steady place to live Within the past 12 months, did the food you bought not last and you didn't have the money to get more?: Never true Within the past 12 months, did you worry whether your food would run out before you got money to buy more?: Never true Do you have trouble paying for medicines?: No Do you have trouble getting transportation to medical appointments?: No Do you have trouble paying your heating and electricity bill?: No Do you have trouble taking care of your child, family member or friend?: No Do you have trouble with day-to-day activities such as bathing, preparing meals, shopping, managing finances, etc.?: No Are you currently unemployed and looking for a job?: No Are you interested in more education?: No Please select the resources that you would like help with: None Currently or been in a relationship where the following occur: No concerns reported THRIVE Score: 0 JEANNIE-7 AMB Questionnaire JEANNIE-7 Date JEANNIE - 7 assessed: 10/26/24 Feeling nervous, anxious, or on edge: 0 = Not at all Not being able to stop or control worryin = Not at all Worrying too much about different things: 0 = Not at all Trouble relaxin = Not at all Being so restless that it is hard to sit still: 0 = Not at all Becoming easily annoyed or irritable: 0 = Not at all Feeling afraid as if something awful might happen: 0 = Not at all Total JEANNIE-7 score (0-4 normal; 5-9 mild; 10-14 moderate; 15-21 severe): 0 Source: Developed by Drs. Iron Garza, Taniya Lyons, John Reid and colleagues, with an educational allan from [employer]. JEANNIE-7 Assessment Billing JEANNIE-7 Assessment Tool: JEANNIE-7 Assessment 40409 Review of Systems Const All systems reviewed & are unremarkable except as noted in HPI and below Reports no additional complaints Eyes Reports no additional complaints ENT Reports no additional complaints Card Reports no additional complaints Resp Reports no additional complaints GI Reports no additional complaints Reports no additional complaints Physical exam (Primary Care) Vital Signs: Last Vital Signs Pulse 84 10/26/24 08:18 BP 130/82 10/26/24 08:18 Pulse Ox 97 10/26/24 08:18 Oxygen Delivery Method Room Air 10/26/24 08:18 BMI result Body Mass Index 25.2 Tobacco/Smoking Status: Tobacco use Status Tobacco use date assessed 10/26/24 10/26/24 08:27 Patient Tobacco Use Status Never used Tobacco 10/26/24 08:18 e-Cigarette/Vaping Use Never Used 10/26/24 08:18 PHQ-9: PHQ-9 Score PHQ-9: Total score 0 10/26/24 08:41 Depression Screening Interpretation: Negative Thrive Assessment: Date of Thrive Assessment Date Thrive assessed 08/22/24 10/26/24 08:18 Currently or been in a relationship where the following occur: No concerns reported Const General: no acute distress HENMT Head: Yes normal to inspection Ears: hearing grossly normal bilaterally General nose exam: Normal external nose present Face and sinus: Yes normal facial exam Mouth: Normal oral and palatal mucosa present Throat: Yes posterior oropharynx normal Eyes General: appearance normal, both eyes and all related structures Neck Neck: Yes no lymphadenopathy and Yes supple Resp Effort & Inspection: normal respiratory effort Auscultation: clear to auscultation bilaterally Cardio Rhythm: regular rhythm Heart sounds: S1 normal heart sound present and S2 normal heart sound present GI Inspection: Yes normal to inspection Palpation (GI): Soft to palpation Percussion: Yes normal to percussion Auscultation: normal bowel sounds Coding Level of Care Code Est Pt Prev Care >65y(89897) Diagnoses Rheumatoid arthritis M06.9 Hyperlipidemia E78.5 Annual physical exam Z00.00 Additional Codes JEANNIE-7 Assessment Billing - JEANNIE-7 Assessment Tool: JEANNIE-7 Assessment 14181 ([id number]) PHQ-9 - 61789 - PHQ-9 Billing: Yes ([id number]) Assessment & Plan Assessment & Plan (1) Rheumatoid arthritis: Comment: f/u [facility] Code(s): M06.9 - Rheumatoid arthritis, unspecified Category: Medical Plan: F/U with Rheumatology (2) Hyperlipidemia: Code(s): E78.5 - Hyperlipidemia, unspecified Category: Medical Plan: cont statin (3) Annual physical exam: Code(s): Z00.00 - Encounter for general adult medical examination without abnormal findings Category: Medical Plan: well balanced diet, regular exercise discussed with the patient. 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 Panel Fast 1 Year E78.5 - Hyperlipidemia, unspecified, M06.9 - Rheumatoid arthritis, unspecified, Z00.00 - Encounter for general adult medical examination without abnormal findings Complete Blood Count Auto Diff 1 Year E78.5 - Hyperlipidemia, unspecified, M06.9 - Rheumatoid arthritis, unspecified, Z00.00 - Encounter for general adult medical examination without abnormal findings Lipid Panel 1 Year E78.5 - Hyperlipidemia, unspecified, M06.9 - Rheumatoid arthritis, unspecified, Z00.00 - Encounter for general adult medical examination without abnormal findings Medications: Refilled ondansetron HCl 4 mg PO BEDTIME 4 days PRN 14 tabs 0RF nausea and vomiting propranolol 20 mg PO BID 180 tabs 2RF
== END 2024-10-26 09:20 | disposition home or self-care (01) ==
PROVIDERS: PCP Internal Medicine; Visit Provider Internal Medicine
DX: Z00.00 Encounter for general adult medical examination without abnormal findings (principal); M06.9 Rheumatoid arthritis, unspecified; E78.5 Hyperlipidemia, unspecified

== ENCOUNTER → 2024-10-26 08:14 | Outpatient (BNVA) | payer OTHER, SELFPAY | PROVIDERS: PCP Internal Medicine; Visit Provider Internal Medicine | DX: Z00.00 Encounter for general adult medical examination without abnormal findings (principal); M06.9 Rheumatoid arthritis, unspecified; E78.5 Hyperlipidemia, unspecified; Z79.899 Other long term (current) drug therapy | CPT/HCPCS: 96127; 99397 ==

== ENCOUNTER → 2024-10-30 08:37 | Outpatient (REF) | payer MEDICARE, SELFPAY ==
--- NOTE | ~2024-10-30 | NM_ITS ---
EXERCISE MYOCARDIAL PERFUSION STUDY INDICATION: Angina, coronary artery disease TECHNIQUE: The patient was brought in for an exercise perfusion study on 10/30/2024. Patient performed exercise as per Brandon protocol and was injected 25 mCi of sestamibi once target heart rate was achieved. Images were obtained using the SPECT gamma camera interlaced with the gating device. Images were obtained in supine position. Resting perfusion study was performed on 11/05/2024. Patient was administered 25 mCi of sestamibi intravenously at rest. Images were then obtained in supine position. Total DLP 91 mGy-cm. Images were processed with the software and compared side to side in short axis, horizontal long axis and vertical long axis views. FINDINGS: Raw aquisition reviewed. The stress perfusion study showed no significant perfusion defects. Both uncorrected as well as CT attenuation corrected images were reviewed. The gated study shows normal LV systolic function with calculated LVEF of > 70%. LV cavity is normal in size. The gated study shows normal wall thickening and contraction of segments. Resting study shows no significant perfusion defects. Gating at rest reveals normal wall motion with ejection fraction at 63%. The findings are consistent with no clear reversible or fixed perfusion defects. NM/NM cardiolite stress test IMPRESSION: 1. Myocardial perfusion imaging study shows normal myocardial perfusion. 2. Gated LVEF is >70% during stress and 63% during rest. 3. Transient ischemic dilatation not present. EKG component of the test reported separately. Electronically signed by: Bryan Carreno MD 11/05/2024 02:37 PM [facility] [place]
--- NOTE | 2024-10-30 08:41 | CA_ITS ---
Acquisition Time: 2024-10-30 09:22:57 Total Exercise Time: 00:05:02 Test Indications: I20.89 - Other forms of angina Medications: Protocol: KAREN Max HR: 153 BPM 99% of Pred: 154 BPM Max BP: 164/080 mmHG Max Work Load: 7.0 METS Exercise stress test with exercise 5 mins 2 secs of Karen Protocol, achieving 98% MPHR, without any anginal symptoms, without any arrythmias, with normotensive response to exercise. Borderline ST changes with baseline sagging ST. Nuclear images pending. Test reviewed with Dr. Carreno. PS. BP when test ended was at 136/72. Referred By: Ling Kellogg Overread By: Narinder Brar
== END ==
LOC: HO.CARD 08:37
PROVIDERS: PCP Internal Medicine; Visit Provider Internal Medicine
DX: I20.89 Other forms of angina pectoris (principal)
CPT/HCPCS: 78452; 93017; A9500

== ENCOUNTER → 2024-10-30 09:21 | Outpatient (BNV) | payer MEDICARE, SELFPAY | PROVIDERS: PCP Internal Medicine; Visit Provider Internal Medicine | DX: I25.118 Atherosclerotic heart disease of native coronary artery with other forms of angina pectoris (principal) | CPT/HCPCS: 78452; 93016; 93018 ==

== ENCOUNTER 2025-01-14 10:07 | Outpatient (REF) | payer MEDICARE, SELFPAY ==
--- OUTSIDE RECORDS SUMMARY | 2025-01-14 13:19 | XMS_ITS | Clinical Summary ---
Author Organization [facility] Address [address] [place] [phone] Phone Care Team Providers Care Stunner Animal Name Role Phone Ling Kellogg MD Primary Care Provider [phone] Social History Tobacco Use Types Packs/Day Years [...] Description 01/20/2025 2:00 PM EDT Hospital Encounter [address] [phone] Yaya Perez MD [address] [place] [address] 01/20/2025 2:00 PM EDT - 01/20/2025 4:30 PM EDT Surgery [facility] OR [address] [place] [phone] Yaya Perez MD [address] [place] [id number] L4-5 DECOMPRESSION LUMBAR [[id number] (CPT??)] Scheduled Procedures Name Priority Associated Diagnoses [...] age to complete this topic Care Teams Stunner Animal Relationship Specialty Start Date End Date Ling Kellogg MD PCP - General Monkey Breeder 06/20/15
--- OUTSIDE RECORDS SUMMARY | 2025-01-14 13:19 | XMS_ITS | Data Portability ---
Author Organization [facility] Hiram Herrera [facility]ONE [place] Address [address] [place] [address] Care Team Providers Care Underbaster Name Role Phone ARABELLA IVERSON Primary Care Provider ARABELLA IVERSON Referring Provider OSVALDO HOROWITZ OTHER Assessment Encounter Date Assessment [...] follow-up with Dr. Perez on in the [place] office to review the MRI findings and options. Patient was seen and evaluated by Alex Hui PA-C in indirect conjunction with Dr. Perez. The provider agrees with the history, physical examination, recommended tests/diagnostic imaging, and treatment plan. 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 She had an MRI at [facility] which suggest disc protrusion worse on [...] times per day Physical therapy Repeat MRI ([facility] to call) Follow-up January 11 This encounter required over 40 minutes of time including chart review, preparation, and documentation, face time with the patient as well as review of other documents and studies. 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 Dr. Leonardo subsequently called me stating that she had new large L4-5 disc herniation. she returns with her today. Despite the tramadol she is the same or perhaps worse. After 2 sessions of physical therapy the therapist told her she failed and discontinued. Physical examination she looks very uncomfortable. She has perhaps slightly worse weakness of the right anterior tibialis. The right EHL is difficult to assess due to prior failed fusion. She has somewhat of a dropfoot with ambulation. I reviewed the corrected MRI with her. There is a meaningful right-sided L4-5 disc herniation. We have an extended conversation discussing the diagnosis natural history and treatment options. She is symptomatic with a right L4-5 disc herniation. She also has rheumatoid arthritis and is taking Arava. The natural history ultimately could be favorable but she is not tolerating her pain and weakness. There is suggestion of increasing weakness. She failed physical therapy. Her options include additional stoic the patient and her understood @forbearance which she is tolerating poorly. We had an extended conversation regarding epidural steroid injections and surgery. Ultimately she wants to proceed with surgery. AONE Spine Surgery Consent The patient and her the procedure, the risks, benefits potential complications and reasonable alternative options. The risks include but are not limited to: increased pain or weakness, infection, bleeding, nerve injury, paralysis, related to the surgery or perioperative medical complications. She consents for right L4-5 lumbar discectomy. No guarantees or promises real or implied were given. There are potentially issues with her arrival. She will discontinue taking the medicine now. She is seeing her cigarette making machine catcher in the near future. Hopefully he will weigh in on the delay in surgery secondary to immunosuppression. She understands this increases her chance for infection. Not available 01/11/2025 10:00:18 Plan of Treatment Reminders Order Date Submit [...] available 01/11/2025 10:10:28 Procedures None recorded. Surgeries lumbar spine surgery (SURG) 2024 025 [email or web address] Not available 01/13/2025 14:08:33 Imaging MRI, lumbar spine, w/o contrast - Acute back pain with lower extremity radiculop athy. Significa nt weakness in the ankle. 2024 025 [facility] ([facility]), [address], [address], [place], [address], 01/01/2025 08:27:52 XR, lumbosacr al spine, 2 or 3 view 2024 025 [email or web address], [address], [place], [address], 12/28/2024 15:59:07 Medication Orders Neurontin 300 mg capsule 2024 025 [facility], [address] [place], [address], 01/05/2025 16:59:01 tramadol 50 mg tablet 2024 025 [facility], [address] [place], [address], 01/05/2025 17:00:38 prednison e 10 mg tablet 2024 025 [email or web address], [address] [place], [address], 12/28/2024 10:01:23 cyclobenz aprine 10 mg tablet [address] [facility], [address] [facility], [place], [address], 01/05/2025 16:40:11 Patient TargetsNo targets recorded. Patient Instructions Encounter Date Encounter Id Patient Instructions Last Modified By Organization Details Last Modified Time 12/28/2024 [id number] Radiographs: 2 views of the lumbar spine were obtained on {{ 12/28/2024#}} in the {{[place]* Neri}} office. X-rays demonstrated {{normal* mild decreased [...] Not available 12/28/2024 09:57:47 Reason for Referral Additional Comments: Active rehab [...] contr ast No observ ation record ed. [email or web address] [facility] ([facility]) [address], [place], [address], 01/02/2025 13:03:26 01/01/20 25 01/01/2025 MRI, lumba r spine , w/o contr ast No observ ation record ed. [facility] ([facility]) [address], [place], [address], 01/02/2025 13:03:26 0201/07/2025 MRI, lumba r spine , w/o contr ast No observ ation record ed. [place] [id number] [facility] ([facility]) [address], [place], [address], 01/10/2025 17:33:17 Result Notes None recorded. Problems Name Problem SNOMED Code Status Onset Date Resolution Date Notes Provider Name and Address Organization Details Recorded Time Lumbar radiculopathy 584245192 Active 2024 ALEX HUI PA-C [address], [place], [address], [place] [facility], [facility] 20:36:57 Lumbar disc prolapse with radiculopathy 530426535 Active 2024 Yaya Perez MD [address], [place], [address], [place] [facility], P 09:34:24 Problem Notes None recorded. Procedures Surgical History Date Name Laterality Status Provider Name and Address Organization Details Recorded Time operative procedure on foot completed Katlin Meyers [place] [facility] 12/28/2024 09:48:55 Imaging Results Imaging Date Name Status LastModified by Organiz ation Details LastModified Time 01/01/2025 MRI, lumbar spine, w/o contrast [place] [id number] [facility] ([facility]) [address], [place], [address], 01/02/2025 13:03:26 01/01/2025 MRI, lumbar spine, w/o contrast [place] [address] [facility] ([facility]) [address], [place], [address], 01/02/2025 13:03:26 01/07/2025 MRI, lumbar spine, w/o contrast [place] [address] [facility] ([facility]) [address], [place], [address], 01/10/2025 17:33:17 Procedure Notes None recorded. Medical Equipment None Reported. Allergies Allergen ID Allergen Name Allergen Category Reaction Reaction Severity Criticality Documentation Date Start Date Code Code System Note Provider Name and Address Organization Details Recorded Time Biaxin medicatio n Not available Not available Not available 12/28/2024 9 RxNorm Katlin Meyers null, [place] [facility], P 09:47:10 Medications Name Sig Start Date [...] Updated DateTime 12/28/2024 167.64 cm 24.2 kg/m2 [address]6847.[address] [facility] 12/28/2024 09:47:19 Date Recorded Body height Provider Name an d Address Organization Details Last Updated DateTime 01/05/2025 167.64 cm Katlin Meyers [facility] 01/05/2025 16:12:05 Date Recorded Body height Body mass index (BMI) Body weight Provider Name and Address Organization Details Last Updated DateTime 01/11/2025 167.64 cm 24.4 kg/m2 44625.[address] [facility] 01/11/2025 09:15:48 Social History Question Answer Notes LastModified by Organizat ion Details LastModified Time Tobacco Smoking Status Never Smoker Katlin Meyers null, [place] [facility], 12/28/2024 09:47:29 What Is Your Level Of [...] available 2024 09:48:01 Medical History Condition Response Osteopenia Y Rheumatoid Arthritis Y Gynecological HistoryNo gynecological history recorded. Obstetrics History GPAL:G 0 P 0 0 0 0 Past Encounters Encounter ID Performer Location Encounter Start Date Encounter Closed Date Diagnosis/Indication Diagnosis SNOMED-CT Code Diagnosis ICD10 Code Diagnosis Note [id number] [facility] [address] [address] [place] [address] 12/28/2024 09:12:50 12/28/2024 09:58:47 Low back pain 864536324 M54.50 Lumbar radiculopathy 128 682776 M54.16 [id number] MD THOMAS Romero [address] [place] [address] [place] [address] 01/05/2025 15:58:36 01/05/2025 16:52:25 Lumbar radiculopathy 030648078 M54.16 [id number] Alvina GUZMAN [place] [address] [place] [address] 01/11/2025 08:58:29 01/11/2025 09:51:09 Lumbar disc prolapse with radiculopathy 615323277 M51.16 Health Concerns Section Related Observation LastModified by Organization Detai ls LastModified Time None Recorded Concern Status LastModified by Organization Details LastModified Time None Recorded Advance Directives Directive None Recorded Payers Encounter Date Sequence Insurance Name Policy Number Policy Prince Covered Member ID Prince Member ID Guarantor Name 12/28/2024 1 [facility] (MEDICARE REPLACEMENT/A DVANTAGE - PPO) [id number] [employer] [id number] ShamikaTheatroCynthia 01/05/2025 1 [facility] (MEDICARE REPLACEMENT/A DVANTAGE - PPO) [id number] [employer] [id number] ShamikaTheatroHouston 01/11/2025 1 [facility] (MEDICARE REPLACEMENT/A DVANTAGE - PPO) [id number] [employer] [id number] ShamikaTheatroHouston Notes Date Note Type Note Provider Name [...] ALEX HUI PA-C [address], [place], [address], [place] [facility] 12/28/2024 10:20:40 OBGyn Episode No OBEpisode recorded.
--- OUTSIDE RECORDS SUMMARY | 2025-01-14 13:19 | XMS_ITS | Clinical Summary ---
Author Organization [facility] Address [address] [place] [address] Care Team Providers Care Hinging Machine Operator Name Role Phone Ling Kellogg MD Primary Care Provider [phone] Allergies Active Allergy Reactions Criticality Noted Date Comments Clarithromycin 09/09/2015 Medications Medication Sig Dispensed Refills Start Date End Date Status calcium acetate (PHOSLO) 667 MG capsule Take 1,334 mg by mouth 3 (three) times a day with meals. 0 Active b vkbnfju-A-gqfdf acid 1 MG capsule Take 1 capsule by mouth daily. 0 Active Fish Oil-Cholecalciferol (FISH OIL + D3) 1900-8578 MG-UNIT CAPS Take by mouth. 0 Active [...] Advance Directives For more information, please contact: [phone] Documents on File Type Date Recorded Patient Pneumatic System Conveyor Operator Expl anation Advance Directive and Living Will 04/27/2016 1:07 PM Care Teams Hinging Machine Operator Relationship Specialty Start Date End Date Ling Kellogg MD PCP - General Sharepoint Architect 06/20/15
--- OUTSIDE RECORDS SUMMARY | 2025-01-14 13:19 | XMS_ITS | Clinical Summary ---
Author Organization Formerly [facility] Address [address] [place] [address] Care Team Providers Care Human Resource Management Instructor Name Role Phone Ling Kellogg MD Primary Care Provider [phone] Encounters Date Type Department Care Team Description 10/16/2024 Orders Only [facility] [address] [place] [address] ReferredCorie MD from Last 3 Months Social History Tobacco Use Types Packs/Day Years Used Date Smoking Tobacco: Never Assessed Sex and Gender Information Value Date Recorded Sex Assigned at Not on file Gender Identity Not on file Sexual Orientation Not on file Plan of Treatment Health Maintenance Due Date Last Done Comments Hepatitis C Virus Screening 1960 DTaP/Tdap/Td Vaccines (1 - Tdap) 1977 Pneumococcal Vaccines 50+ (1 of 1 - PCV) 2008 Zoster (Shingles) Vaccine (1 of 2) 2008 COVID-19 Vaccine ( - 2023-2 5 season) 2024 RSV Vaccine 60 years and old er and Patients (1 - 1-dose 75+ series) 2033 Hepatitis B Vaccines Aged Out No long er eligible based on patient's age to complete this topic Procedures Procedure Name Priority Date/Time Associated Diagnosis Comments MG SCREENING DIGITAL BREAST PATRIA- BILATERAL Routine 10/16/2024 4:30 PM EST from Last 3 Months Results * MG SCREENING DIGITAL BREAST PATRIA- BILATERAL (10/16/2024 4:30 PM EST) Anatomical Region Laterality Modality Other 10/16/2024 3:45 PM EST 10/16/2024 3:45 PM EST Narrative 10/29/2024 4:13 PM EST HISTORY: Patient is 64 years old and is seen for screening. The patient has no personal history of breast or ovarian cancer. The patient has no family history of breast cancer. FILMS COMPARED: The present examination has been compared to prior imaging studies dated 09/14/2020, 10/09/2021, 10/10/2022 and 10/11/2023. PATRIA STATEMENT: Computer-aided detection was utilized by the radiologist in the interpretation of this examination. 3D tomosynthesis digital mammographic images were obtained using standard projections. MAMMOGRAM FINDINGS: There are scattered fibroglandular densities. (ACR BIRADS density Category b) * No suspicious masses, calcifications or other abnormalities are seen in either breast. IMPRESSION: There is no mammographic evidence of malignancy. Routine follow-up mammogram in 1 year is recommended. The patient will receive a lay summary of the results of this breast imaging exam. Lay summaries for mammography examinations will also identify the patients personal breast tissue composition as required by state law. BIRADS Category 1: Negative Thank you for referring your patient to us, Gurmeet Lloyd MD [phone] (Electronically Signed - 10/29/2024 16:13) Copy: LONNIE YOON MD [facility]- [address] [address] Procedure Note Gurmeet Lloyd MD - 10/29/2024 HISTORY: Patient is 64 years old and is seen for screening. The patient has no personal history of breast or ovarian cancer. The patient has no family history of breast cancer. FILMS COMPARED: The present examination has been compared to prior imaging studies dated111/14/2019, 10/09/2021, 10/10/2022 and 10/11/2023. PATRIA STATEMENT: Computer-aided detection was utilized by the radiologist in theinterpretation of this examination. 3D tomosynthesis digital mammographic images were obtained using standardprojections. MAMMOGRAM FINDINGS: There are scattered fibroglandular densities. (ACR BIRADS density Categoryb) * No suspicious masses, calcifications or other abnormalities are seen ineither breast. IMPRESSION: There is no mammographic evidence of malignancy. Routine follow-up mammogram in 1 year is recommended. The patient will receive a lay summary of the results of this breastimaging exam. Lay summaries for mammography examinations will alsoidentify the patients personal breast tissue composition as required [facility] law. BIRADS Category 1: Negative Thank you for referring your patient to us, Gurmeet Lloyd MD [phone] (Electronically Signed - 10/29/2024 16:13) Copy: LONNIE YOON MD [facility] [address] [address] Rad-Self Referred MD [facility] from Last 3 Months Care Teams Human Resource Management Instructor Relationship Specialty Start Date End Date Ling Kellogg MD [address] [place] [id number] PCP - General
--- OUTSIDE RECORDS SUMMARY | 2025-01-14 13:19 | XMS_ITS | Clinical Summary ---
Author Organization [facility] Address [address] [place] [address] Care Team Providers Care Die Drawing Checker Name Role Phone Pcp, No MD Primary [...] to complete this topic Insurance Care Teams Die Drawing Checker Relationship Specialty Start Date End Date Laureen Elizondo MD [address] [place] [address] PCP - General 02/11/18
[2025-01-14 13:32] LABS: MANUAL DIFF FLAG NO
[2025-01-14 13:35] LABS: Basophils Percent Auto 0.3 % (0-2); Eosinophils Absolute Auto 0.1 X10*3/uL (0.0-0.4); Eosinophils Percent Auto 2.1 % (0-4); Hematocrit 43.9 % (37.0-47.0); Hemoglobin 13.9 g/dl (12.0-16.0); Imm Gran Abs Auto 0.03 X10*3/uL (0.00-0.03); Imm Gran Pct Auto 0.5 % (0.0-0.4); Lymphocytes Percent Auto 34.5 % (20-40); Mean Corpuscular HGB Conc 31.7 g/dl (31.0-35.0); Mean Corpuscular Volume 85.2 fL (80.0-98.0); Mean Platelet Volume 10.7 fL (9.4-12.3); Monocytes Absolute Auto 0.5 X10*3/uL (0.1-1.2); Monocytes Percent Auto 8.2 % (2-11); Neutrophils Absolute Auto 3.2 x10*3/uL (2.0-8.3); Neutrophils Percent Auto 54.4 % (45-73); Platelet Count 293 X10*3/uL (160-400); Red Blood Count 5.15 X10*6/uL (4.20-5.50); Red Cell Distribution Width 13.7 % (11.0-16.0); White Blood Count 5.8 X10*3/uL (4.8-10.8)
[2025-01-14 13:52] LABS: Anion Gap 12 (12-20); Blood Urea Nitrogen 13 mg/dL (9-16); Calcium 10.2 mg/dL (8.4-10.2); Carbon Dioxide 26 mmol/L (22-29); Chloride 105 mmol/L (96-108); Estimated Glomerular Filt Rate > 60; Glucose Random 93 mg/dL (60-115); Potassium 4.3 mmol/L (3.3-5.1); Sodium 139 mmol/L (135-145)
== END 2025-01-14 10:08 | disposition home or self-care (01) ==
LOC: HO.HMGCLDS 10:07
PROVIDERS: PCP Internal Medicine; Visit Provider Internal Medicine
DX: M54.30 Sciatica, unspecified side (principal)
CPT/HCPCS: 36415; 80048; 85025; 96127; 99212

== ENCOUNTER 2025-01-14 10:07 | Outpatient (AMB) | payer MEDICARE, SELFPAY ==
[2025-01-14 10:15] VITALS: BP 124/82; PULSE 83; RESP 20; TEMP 36.7; O2SAT 98; BMI 24.4
--- NOTE | 2025-01-14 10:15 | A.OFFPC_ITS ---
Vital Signs 01/14/25 10:15 Height 5 ft 6 in Weight 151 lb BMI 24.4 BP 124/82 Blood Pressure Location Lt brachial Position Sitting Respiration 20 Pulse 83 Pulse Source Pulse Oximeter Temp 98.1 F Temp Source Oral Pulse Oximetry (%) 98 Oxygen Delivery Method Room Air Intake Visit Reasons: Pre op Herniated discectomy 01/20/25 Dr. Sierra Intake Note: Pt is here today for a pre op visit. Pt is having lumbar discectomy on 01/20/[address] Perez. Allergies clarithromycin [From Biaxin] Allergy (Unknown, Verified 01/14/25 10:19) Insomnia Tobacco use date assessed: 01/14/25 Fall risk assessment: No Falls in past year Last assessed Fall Risk: 01/14/25 Dental Screening Dental Screen Date: 01/14/25 Did you have a dental visit in the last 12 months?: Yes Did you have a dental problem in the last 6 months where you did not have access to dental care?: No Was dental information given to patient?: Patient has dentist HPI Pre op Herniated discectomy 01/20/25 Dr. Sierra HPI Details Pt is for preop for lumbar disc herniation L4-5 surgery. Patient developed acute lower back pain radiating to right lower extremity after shoveling snow 2 weeks ago. MRI is consistent with advanced disc herniation L4- L5 region. Patient has been taking tramadol with some relief and has a surgery scheduled next week. [facility] Medical History Tremor Normal breast exam Carpal tunnel syndrome Palpitations Anxiety Hyperglycemia Right hand weakness Hyperlipidemia Annual physical exam Osteoarthritis Rheumatoid arthritis Surgical History H/O colonoscopy Family History Father Hypertension History of heart bypass surgery Heart attack Mother Lung cancer Social History Housing: House Alcohol intake: current Alcohol intake frequency: a few times a week Patient Tobacco Use Status: Never used Tobacco e-Cigarette/Vaping Use: Never Used service: No Current occupational status: retired Cognitive needs: No Hearing needs: No Vision needs: Yes Questionnaire PHQ-9 Over the last 2 weeks, how often have you been bothered by any of the following problems? 1. Little interest or pleasure in doing things: not at all 2. Feeling down, depressed, or hopeless: not at all 3. Trouble falling or staying asleep, or sleeping too much: not at all 4. Feeling tired or having little energy: not at all 5. Poor appetite or overeating: not at all 6. Feeling bad about yourself - or that you are a failure or have let yourself or your family down: not at all 7. Trouble concentrating on things, such as reading the newspaper or watching te levision: not at all 8. Moving or speaking so slowly that other people could have noticed. Or the opposite - being so fidgety or restless that you have been moving around a lot more than usual: not at all 9. Thoughts that you would be better off or of hurting yourself in some way: not at all Total score: 0 Depression Screening Interpretation: Negative Depression Screening Done: Yes 49837 - PHQ-9 Billing: Yes Source: Developed by Drs. Iron Garza, Taniya Lyons, John Reid and colleagues, with an educational allan from [employer]. Thrive Questionnaire Date Thrive assessed: 01/14/25 I am a: Patient What is your living situation today?: I have a steady place to live Within the past 12 months, did the food you bought not last and you didn't have the money to get more?: Never true Within the past 12 months, did you worry whether your food would run out before you got money to buy more?: Never true Do you have trouble paying for medicines?: No Do you have trouble getting transportation to medical appointments?: No Do you have trouble paying your heating and electricity bill?: No Do you have trouble taking care of your child, family member or friend?: No Do you have trouble with day-to-day activities such as bathing, preparing meals, shopping, managing finances, etc.?: No Are you currently unemployed and looking for a job?: No Are you interested in more education?: No Please select the resources that you would like help with: None Currently or been in a relationship where the following occur: No concerns reported THRIVE Score: 0 AUDIT C Alcohol Use Questionnaire (AUDIT-C) 1. How often do you have a drink containing alcohol?: 2-4 times a month 2. How many drinks containing alcohol do you have on a typical day when you are drinking?: 1 or 2 3. How often do you have six or more drinks on one occasion?: Never Total Score: 2 JEANNIE-7 AMB Questionnaire JEANNIE-7 Date JEANNIE - 7 assessed: 01/14/25 Feeling nervous, anxious, or on edge: 0 = Not at all Not being able to stop or control worryin = Not at all Worrying too much about different things: 0 = Not at all Trouble relaxin = Not at all Being so restless that it is hard to sit still: 0 = Not at all Becoming easily annoyed or irritable: 0 = Not at all Feeling afraid as if something awful might happen: 0 = Not at all Total JEANNIE-7 score (0-4 normal; 5-9 mild; 10-14 moderate; 15-21 severe): 0 Source: Developed by Drs. Iron Garza, Taniya Lyons, John Reid and colleagues, with an educational allan from [employer]. JEANNIE-7 Assessment Billing JEANNIE-7 Assessment Tool: JEANNIE-7 Assessment 10773 Review of Systems Const All systems reviewed & are unremarkable except as noted in HPI and below Eyes Reports no additional complaints ENT Reports no additional complaints Card Reports no additional complaints Resp Reports no additional complaints GI Reports no additional complaints Reports no additional complaints Physical exam (Primary Care) Vital Signs: Last Vital Signs Temp 98.1 F 01/14/25 10:15 Pulse 83 01/14/25 10:15 Resp 20 01/14/25 10:15 BP 124/82 01/14/25 10:15 Pulse Ox 98 01/14/25 10:15 Oxygen Delivery Method Room Air 01/14/25 10:15 BMI result Body Mass Index 24.4 Tobacco/Smoking Status: Tobacco use Status Tobacco use date assessed 01/14/25 01/14/25 10:23 Patient Tobacco Use Status Never used Tobacco 01/14/25 10:23 e-Cigarette/Vaping Use Never Used 01/14/25 10:23 PHQ-9: PHQ-9 Score PHQ-9: Total score 0 01/14/25 10:23 Depression Screening Interpretation: Negative Thrive Assessment: Date of Thrive Assessment Date Thrive assessed 01/14/25 01/14/25 10:23 Currently or been in a relationship where the following occur: No concerns reported Const General: no acute distress HENMT Head: Yes normal to inspection Face and sinus: Yes normal facial exam Neck Neck: Yes no lymphadenopathy and Yes supple Resp Effort & Inspection: normal respiratory effort Auscultation: clear to auscultation bilaterally Cardio Rhythm: regular rhythm Heart sounds: S1 normal heart sound present and S2 normal heart sound present GI Inspection: Yes normal to inspection Palpation (GI): Soft to palpation Percussion: Yes normal to percussion Auscultation: normal bowel sounds Coding Level of Care Code Est Pt Level 3 (23277) Diagnoses Sciatica M54.30 Additional Codes JEANNIE-7 Assessment Billing - JEANNIE-7 Assessment Tool: JEANNIE-7 Assessment 07516 ([id number]) PHQ-9 - 62295 - PHQ-9 Billing: Yes ([id number]) Assessment & Plan Assessment & Plan (1) Sciatica: Comment: MR c/w advanced disc herniation L4-5, 12/2024 Code(s): M54.30 - Sciatica, unspecified side Category: Medical Plan: Meloxicam is prescribed in addition to tramadol. patient will check with the surgeon if she can take it before the surgery. EKG showed normal sinus rhythm no acute ST-T changes. Patient is medically cleared for diskectomy. Orders: Orders Complete Blood Count Auto Diff Today M54.30 - Sciatica, unspecified side Basic Metabolic Panel Today M54.30 - Sciatica, unspecified side Medications: New meloxicam 15 mg PO DAILY 30 tabs 0RF
--- OUTSIDE RECORDS SUMMARY | 2025-01-14 11:49 | XMS_ITS | Continuity of Care Document ---
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 The pain radiates from the right buttock down to the foot. It is completely disrupted her sleep. She perceives weakness. She has no sphincter disorder. She was well until about 16 days ago. She She will driveway. In 3 days she noted aching in her back and promptly developed severe right lower extremity pain. Treatment has included prednisone taper which did not help at all, muscle relaxants which were equally unhelpful and tramadol which she has been taking in low doses. She had an MRI at [facility] which suggest disc protrusion worse on the left side than the right at L4-5. Physical examination she appears very uncomfortable. She has 4 - strength of her right anterior tib. The right EHL is fused with strength assessment is unavailable. I called Dr. Leonardo and had an extensive conversation with him about the MRI. I believe there must be a disc herniation on the right at L4-5. They will bring the patient back to the scanner for thin slices through L4-5 and L5-S1. We have an extended conversation regarding the diagnosis natural history and treatment options. I am strongly convinced she has a disc herniation we discussed the disc herniation as a diagnosis but I cannot fully confirm that. Natural history of disc herniations tend to be favorable. She is only been symptomatic for 2-1/2 weeks. She does have meaningful weakness which cannot be fully assessed due to a prior toe fusion. Treatment options include stoic forbearance physical therapy injections and surgery. She is tolerating the pain poorly. Will add gabapentin and tramadol to her treatment. She has started on physical therapy. Is not clear that she will tolerate the therapy nor that it will help but she needs to do this for completeness and for the insurance company. Epidural steroid injections will likely be problematic in that the oral steroid had absolutely no impact on her pain. Surgery could be considered but we need to have more clarity on the diagnosis particularly the foramen at L4-5.I reviewed outpatient lumbar discectomy. Actions items: Tramadol: Increased dose to 1-2 every 6-8 hours Gabapentin 300 mg at night gradually increase to 1 3 times per day Physical therapy Repeat MRI ([facility] to call) Follow-up January 11 This encounter required over 40 minutes of time including chart review, preparation, and documentation, face time with the patient as well as review of other documents and studies. [email or web address] Not available 01/05/2025 17:07:42 Plan of Treatment Reminders Order Date Submit Date Provider Last Modified By Organization Details Last Modified Time Details Appointments SURGERY 120 2024 02:00P Irish Perez MD Not available Not available Not available POST-OP 2024 10:00A Irish Perez MD Not available Not available Not available Lab None recorded. Referral orthopedi c physical therapist referral - Dk robbins Comments: Active rehab home exercise program 3 times per week for 1 month. Please notify our office immediate ly she had her surgery she is doing okay if the therapy is not tolerated 2024 025 CORINE Not available 01/11/2025 10:10:28 Procedures None recorded. Surgeries None recorded. Imaging None recorded. Medication Orders Neurontin 300 mg capsule 2024 025 [id number], [address] [place], [address], 01/05/2025 16:59:01 tramadol 50 mg tablet 2024 025 [id number], [address] [place], [address], 01/05/2025 17:00:38 Patient TargetsNo targets recorded. Patient InstructionsNo instructions recorded. Reason for Referral Additional Comments: Active rehab home exercise program 3 times per week for 1 month. Please notify our office immediately she had her surgery she is doing okay if the therapy is not tolerated Referring Physician: Yaya Perez, Orthopedic Surgery, Encounter Date: 01/05/2025 Results Created Date Observation Date Name Description Value Unit Range Abnormal Flag Note LastModifiedBy Organization Detail LastModifiedTime 01/01/2001/01/2025 MRI, lumba r spine , w/o contr ast No observ ation [place] [id number] [facility] [address], [place], [address], 01/02/2025 13:03:26 01/01/20 25 01/01/2025 MRI, lumba r spine , w/o contr ast No observ ation [place] [id number] [facility] ([facility]) [address], [place], [address], 01/02/2025 13:03:26 01/07/20 25 01/07/2025 MRI, lumba r spine , w/o contr ast No observ ation record [place] [id number] [facility] ([facility]) [address], [place], [address], 01/10/2025 17:33:17 Result Notes None recorded. Problems Name Problem SNOMED Code Status Onset Date Resolution Date Notes Provider Name and Address Organization Details Recorded Time Lumbar radiculopathy 862691339 Active 2024 VASYL FANG PA-C [address], [place], [address], [place] [facility] [place], [facility] 5 20:36:57 Lumbar disc prolapse with radiculopathy 900386416 Active 2024 Yaya Perez MD [address], [facility] [place], [address], [facility] 09:34:24 Problem Notes None recorded. Procedures Surgical History Date Name Laterality Status Provider Name and Address Organization Details Recorded Time operative procedure on foot completed [facility] [place], [facility] 12/28/2024 09:48:55 Imaging Results None recorded. Procedure Notes None recorded. Medical Equipment None Reported. Allergies Allergen ID Allergen Name Allergen Category Reaction Reaction Severity Criticality Documentation Date Start Date Code Code System Note Provider Name and Address Organization Details Recorded Time Biaxin medicatio n Not available Not available Not available 12/28/2024 9 [facility], P 09:47:10 Medications Name Sig Start Date Stop Date Status Note LastModified by Organization Details LastModified Time cyclobenzap rine 10 mg tablet Take 1 tablet as needed by oral route at bedtime for 7 days. 01/05 completed Not Available Not Available Not Available prednisone 10 mg tablet Take 5 tablet(s) EVERY DAY by oral route for 2 days, then decrease by 1 pill every 2 days until gone (5,5,4,4, 3,3,2,2,1 ,1) active Not Available Not Available No t Available pravastatin 40 mg tablet active Not Available Not Available Not Available ondansetron HCl 4 mg tablet active Not Available Not Available Not Available leflunomide 10 mg tablet active Not Available Not Available Not Available tramadol 50 mg tablet Take 1 to 2 tablets every 6-8 hours active Not Available Not Available No t Available gabapentin 300 mg capsule Take 1 capsule 3 times a day by oral route. active Not Available Not Available No t Available propranolol 20 mg tablet active Not Available Not Available Not Available Vitals Date Recorded Body height Provider Name an d Address Organization Details Last Updated DateTime 01/05/2025 167.64 cm [facility] [place], P 01/05/2025 16:12:05 Social History Question Answer Notes LastModified by Organizat ion Details LastModified Time Tobacco Smoking Status Never Smoker Katlin Meyers null, [place] [facility] [place] 12/28/2024 09:47:29 What Is Your Level Of Alcohol Consumption? Occasional Information not available 12/28/2024 How Many Times Per Week Do You Consume Alcohol? 1-2 Times Per Week Information not available 12/28/2024 Do You Use Any Illicit Or Recreational Drugs? No Information not available 12/28/2024 Do You Or Have You Ever Used Any Other Forms Of Tobacco Or Nicotine? No Information not available 12/28/2024 Sex: Unknown Functional Status None recorded. Mental Status None recorded. Family History Relationship Description Onset Age of this Age Resolved Age Notes LastModified by Organization Details LastModified Time Sister Arthritis Not available 12/28/2024 09:47:47 Sister Hypercholest erolemia Not available 2024 09:48:15 Mother History of cancer of unknown primary site Not available 09:47:52 Father Heart disease Not available 2024 09:48:01 Father Hypercholest erolemia Not available 2024 09:48:15 Father Hypertensive disorder Not available 2024 09:48:23 Brother Heart disease Not available 2024 09:48:01 Medical History Condition Response Rheumatoid Arthritis Y Osteopenia Y Gynecological HistoryNo gynecological history recorded. Obstetrics History GPAL:G 0 P 0 0 0 0 Past Encounters Encounter ID Performer Location Encounter Start Date Encounter Closed Date Diagnosis/Indication Diagnosis SNOMED-CT Code Diagnosis ICD10 Code Diagnosis Note [id number] [facility] [address] [facility] [address] [place] [address] 12/28/2024 09:12:50 12/28/2024 09:58:47 Low back pain 940798727 M54.50 Lumbar radiculopathy 128 134861 M54.16 [id number] MD THOMAS Romero [address] [facility] [place] [address] 01/05/2025 15:58:36 01/05/2025 16:52:25 Lumbar radiculopathy 087826732 M54.16 Health Concerns Section Related Observation LastModified by Organization Detai ls LastModified Time None Recorded Concern Status LastModified by Organization Details LastModified Time None Recorded Payers Encounter Date Sequence Insurance Name Policy Number Policy Prince Covered Member ID Prince Member ID Guarantor Name 01/05/2025 1 [facility] (MEDICARE REPLACEMENT/A DVANTAGE - PPO) [id number] Shamika Marie [id number] Shamika Marie OBGyn Episode No OBEpisode recorded.
--- OUTSIDE RECORDS SUMMARY | 2025-01-14 11:49 | XMS_ITS | Clinical Summary ---
Author Organization [facility] Address [address] [place] [address] Care Team Providers Care Shipbuilding Draftsperson Name Role Phone Pcp, No MD Primary Care Provider Unavailabl e Allergies Active Allergy Reactions Criticality Noted Date Comments Clarithromycin 09/11/2023 Medications pravastatin (PRAVACHOL) 40 mg tablet 08/29/2023 Active leflunomide (ARAVA) 20 mg tablet Take 10 mg by mouth. 10/09/2016 Active propranoloL (INDERAL) 20 mg tablet Take 20 mg by mouth in the morning and 20 mg at noon and 20 mg before bedtime. Active estradioL (ESTRACE) 0.01 % (0.1 mg/gram) vaginal cream Insert 2 g into the vagina in the morning. Active Social History Tobacco Use Types Packs/Day Years Used Date Smoking Tobacco: Never Assessed Comments Unknown Sex and Gender Information Value Date Recorded Sex Assigned at Not on file Legal Sex Female 7:44 AM EDT Gender Identity Not on file Sexual Orientation Not on file Plan of Treatment Health Maintenance Due Date Last Done Comments Bone Density Screening 1958 Breast Cancer Screening 1958 CT Colonography 1958 Colonoscopy 1958 Colorectal Cancer Screening 1958 FIT-DNA (Cologuard) 1958 FIT 1958 FOBT 1958 Flex Sigmoidoscopy - 5y 1958 HIV Screening 1958 DTaP,Tdap,and Td Vaccines (1 - Tdap) 1976 Hepatitis C Screening 1976 Zoster Vaccines (1 of 2) 2008 Pneumococcal Vaccine, 65+ Years (1 of 1 - PCV) 2023 COVID-19 Vaccine ( season) 2024 07/17/2023, 08/14/2022, 02/23/2022, Additional history exists Influenza Vaccine (#1) 2024 HPV Vaccines Aged Out No longer eligi ble based on patient's age to complete this topic Hepatitis A Vaccines Aged Out No long er eligible based on patient's age to complete this topic MMR Vaccines Aged Out No longer eligi ble based on patient's age to complete this topic Meningococcal Vaccine Aged Out No lizabeth brooks eligible based on patient's age to complete this topic Insurance Care Teams Shipbuilding Draftsperson Relationship Specialty Start Date End Date Laureen Elizondo MD [address] [place] [address] PCP - General 02/11/18
--- OUTSIDE RECORDS SUMMARY | 2025-01-14 11:50 | XMS_ITS | Clinical Summary ---
Author Organization [facility] Address [address] [place] [address] Care Team Providers Care Ceramics Instructor Name Role Phone Ling Kellogg MD Primary Care Provider [phone] Allergies Active Allergy Reactions Criticality Noted Date Comments Clarithromycin 09/09/2015 Medications Medication Sig Dispensed Refills Start Date End Date Status calcium acetate (PHOSLO) 667 MG capsule Take 1,334 mg by mouth 3 (three) times a day with meals. 0 Active b zjahakd-P-gnrcd acid 1 MG capsule Take 1 capsule by mouth daily. 0 Active Fish Oil-Cholecalciferol (FISH OIL + D3) 7696-4949 MG-UNIT CAPS Take by mouth. 0 Active aspirin EC 325 MG tablet 0 10/20/2015 Active oxyCODONE-acetaminoph en (PERCOCET) 5-325 MG per tablet 0 10/20/2015 Active TRANSDERM-SCOP 1 MG/3DAYS 0 10/15/2015 Active sulfamethoxazole-trim ethoprim (BACTRIM DS,SEPTRA DS) 800-160 MG per tablet 0 11/16/2015 Active leflunomide (ARAVA) 20 MG tabletIndications:Rhe umatoid arthritis, involving unspecified site, unspecified rheumatoid factor presence,High risk medication use,Encounter for monitoring leflunomide therapy Take 1 tablet (20 mg total) by mouth daily. 90 tablet 2 10/09/2016 Active econazole nitrate 1 % cream 0 11/23/2016 Active metroNIDAZOLE (METROGEL) 0.75 % gel 0 11/23/2016 Act jose Active Problems Problem Noted Date Diagnosed Date Right foot pain 08/23/2016 Foot pain, right 08/23/2016 Nonunion of fracture of right foot 08/23/2016 Rheumatoid arthritis 09/11/2015 Encounter for monitoring leflunomide therapy 11/2014 Primary osteoarthritis of right foot 09/11/2015 Resolved Problems Problem Noted Date Diagnosed Date Resolved Date High risk medication use 09/11/2015 Family History Medical History Relation Name Comments Factor V Leiden deficiency Brother Heart disease Father Cancer Mother Factor V Leiden deficiency Other Factor V Leiden deficiency Sister Relation Name Status Comments Brother Father Mother Other Sister Social History Tobacco Use Types Packs/Day Years Used Date Smoking Tobacco: Never Smokeless Tobacco: Never Alcohol Use Standard Drinks/Week Comments No 0 (1 standard drink = 0.6 oz pur e alcohol) Sex and Gender Information Value Date Recorded Sex Assigned at Not on file Gender Identity Not on file Sexual Orientation Not on file Last Filed Vital Signs Vital Sign Reading Time Taken Comments Blood Pressure 120/90 12/25/2016 3:50 PM EST Pulse 74 12/25/2016 3:50 PM EST Temperature - - Respiratory Rate - - Oxygen Saturation 95% 07/31/2016 3:23 PM EDT Inhaled Oxygen Concentration - - Weight 68.5 kg (151 lb) 12/25/2016 3:50 PM EST Height 165.1 cm (5' 5 ) 08/23/2016 9:54 AM EDT Body Mass Index 25.13 08/23/2016 9:54 AM EDT Plan of Treatment Health Maintenance Due Date Last Done Comments Hepatitis C Screening 1960 COVID-19 Vaccine (#1) 1958 Depression Screening 1970 Preventative Health Evaluation 1976 DTap / Tdap / Td (1 - Tdap) 1977 Colon Cancer Screening (Colonoscopy) 2003 Breast Cancer Screening (Mammogram) 2008 Shingrix-Zoster Vaccine (1 of 2) 2008 Fall Risk Assessment 2023 Osteoporosis Screening (DEXA Scan) 03/21/20232017 Pneumococcal Vaccine (1 of 1 - PCV) 2023 Influenza Vaccine (#1) 2024 RSV Adult > 60+ Yrs or Pregn ant (1 - 1-dose 75+ series) 2033 Hepatitis B Vaccines Aged Out No long er eligible based on patient's age to complete this topic RSV Ped < 20 months Aged Out No longe r eligible based on patient's age to complete this topic Advance Directives For more information, please contact: [phone] Documents on File Type Date Recorded Patient Indigo Mixer Expl anation Advance Directive and Living Will 04/27/2016 1:07 PM Care Teams Ceramics Instructor Relationship Specialty Start Date End Date Ling Kellogg MD PCP - General Oil Well Driller 06/20/15
--- OUTSIDE RECORDS SUMMARY | 2025-01-14 11:50 | XMS_ITS | Continuity of Care Document ---
Author Organization [facility] Hiram Herrera AONE [facility] Address [address] [place] [address] Care Team Providers Care Load Out Supervisor Name Role Phone ARABELLA IVERSON Primary Care Provider ARABELLA IVERSON Referring Provider [phone] OSVALDO HOROWITZ OTHER Assessment Encounter Date Assessment Date Assessment LastModified by Organization Details LastModified Time 12/28/2024 12/28/2024 Patient has acut e low back pain with right lower extremity radiculopathy. She had notable weakness in her ankle on dorsi flexion. She also has difficulty getting comfortable. She was given a prednisone taper. She was also given a prescription for cyclobenzaprine at bedtime. The risk, benefits potential side effects were reviewed. With a radiculopathy, an MRI will be obtained to rule out nerve compression. Patient will follow-up with Dr. Perez on in the [place] office to review the MRI findings and options. Patient was seen and evaluated by Alex Hui PA-C in indirect conjunction with Dr. Perez. The provider agrees with the history, physical examination, recommended tests/diagnostic imaging, and treatment plan. [email or web address] Not available 12/28/2024 10:02:17 Plan of Treatment Reminders Order Date Submit Date Provider Last Modified By Organization Details Last Modified Time Details Appointments SURGERY 120 2024 02:00P Irish Perez MD Not available Not available Not available POST-OP 2024 10:00A Irish Perez MD Not available Not available Not available Lab None recorded. Referral None recorded. Procedures None recorded. Surgeries None recorded. Imaging MRI, lumbar spine, w/o contrast - Acute back pain with lower extremity radiculop athy. Significa nt weakness in the ankle. 2024 025 [facility] [place] [place] ([facility]), [address], [address], [place], [address], 01/01/2025 08:27:52 XR, lumbosacr al spine, 2 or 3 view [facility], [address], [address], [place], [address], 12/28/2024 15:59:07 Medication Orders prednison e 10 mg tablet 2024 025 [facility], [address] [place], [address], 12/28/2024 10:01:23 cyclobenz aprine 10 mg tablet 2024 025 [facility], [address] [place], [address], 01/05/2025 16:40:11 Patient TargetsNo targets recorded. Patient Instructions Encounter Date Encounter Id Patient Instructions Last Modified By Organization Details Last Modified Time 12/28/2024 [id number] Radiographs: 2 views of the lumbar spine were obtained on {{ 12/28/2024#}} in the {{[place]* Neri}} office. X-rays demonstrated {{normal* mild decreased decreased}} bone mineralization. {{Normal alignment Straightene d alignment* Hyperlordo sis Scoliosis apex to the left Scoliosis apex to the right}}. {{Disc spaces were well-maintained Decre ased disc space at Decreased disc space at L5-S1#}}. Calcification noted between L1 and L2. Vertebral height was well-maintained. No evidence of spondylolisthesis or spondylolysis. No evidence of acute injury or fracture. Images interpreted by: ROBERTO [email or web address] Not available 12/28/2024 09:57:47 Reason for Referral None Reported. Results Created Date Observation Date Name Description Value Unit Range Abnormal Flag Note LastModifiedBy Organization Detail LastModifiedTime 01/01/20 25 01/01/2025 MRI, lumba r spine , w/o contr ast No observ ation record ed. [email or web address] [facility] ([facility]) [address], [place], [address], 01/02/2025 13:03:26 01/01/20 25 01/01/2025 MRI, lumba r spine , w/o contr ast No observ ation record ed. [place] [id number] [facility] ([facility]) [address], [place], [address], 01/02/2025 13:03:26 01/07/20 25 01/07/2025 MRI, lumba r spine , w/o contr ast No observ ation record ed. [place] [id number] [facility] ([facility]) [address], [place], [address], 01/10/2025 17:33:17 Result Notes None recorded. Problems Name Problem SNOMED Code Status Onset Date Resolution Date Notes Provider Name and Address Organization Details Recorded Time Lumbar radiculopathy 490561006 Active 2024 ALEX HUI PA-C [address], [place], [address], [place] [facility] 5 20:36:57 Lumbar disc prolapse with radiculopathy 634167259 Active 2024 Yaya Perez MD [address], [place], [address], [place] [facility], [facility] 5 09:34:24 Problem Notes None recorded. Procedures Surgical History Date Name Laterality Status Provider Name and Address Organization Details Recorded Time operative procedure on foot completed Katlin Meyers [facility] 12/28/2024 09:48:55 Imaging Results None recorded. Procedure Notes None recorded. Medical Equipment None Reported. Allergies Allergen ID Allergen Name Allergen Category Reaction Reaction Severity Criticality Documentation Date Start Date Code Code System Note Provider Name and Address Organization Details Recorded Time Biaxin medicatio n Not available Not available Not available 12/28/2024 9 RxNorm Katlin Meyers [facility], P 09:47:10 Medications Name Sig Start [...] Not Available Vitals Date Recorded Body height Body mass index (BMI) Body weight Provider Name and Address Organization Details Last Updated DateTime 12/28/2024 167.64 cm 24.2 kg/m2 68441.86 g Katlin Meyers [facility], 12/28/2024 09:47:19 Social History Question Answer Notes LastModified by Organizat ion Details LastModified Time Tobacco Smoking Status Never Smoker Katlin Meyers [facility], P 12/28/2024 09:47:29 What Is Your Level Of Alcohol Consumption? Occasional Information not available 12/28/2024 How Many Times Per Week Do You Consume Alcohol? 1-2 Times Per Week Information not available 12/28/2024 Do You Use Any Illicit Or Recreational Drugs? No Information not available 12/28/2024 Do You Or Have You Ever Used Any Other Forms Of Tobacco Or Nicotine? [place] [address] Information not available 12/28/2024 Sex: Unknown Functional [...] SNOMED-CT Code Diagnosis ICD10 Code Diagnosis Note [id number] [facility] [address] [place] [address] 12/28/2024 09:12:50 12/28/2024 09:58:47 Low back pain 488074155 M54.50 Lumbar radiculopathy 128 221504 M54.16 Health Concerns Section Related Observation LastModified by Organization Detai ls LastModified Time None Recorded Concern Status LastModified by Organization Details LastModified Time None Recorded Payers Encounter Date Sequence Insurance Name Policy Number Policy Prince Covered Member ID Prince Member ID Guarantor Name 12/28/2024 1 [facility] (MEDICARE REPLACEMENT/A DVANTAGE - PPO) [id number] Shamika Marie [id number] Shamika Marie Notes Date Note Type Note Provider Name and Address Organization Details Recorded Time 12/28/2024 text/html Patient is a 64-year-old female who presents today with acute low back pain after shoveling. She was sore afterwards, but had significant pain in her leg the following day. Symptoms have been progressing and are now constant. She has more pain when she is sitting and laying down. She has difficulty finding a comfortable position. Symptoms are worse at nighttime. Symptoms can be a 9 out of 10. She has been using ibuprofen, heat, ice without any change. No prior injury or trauma to her back. She does have a history of well-controlled rheumatoid arthritis. She has a history of right EHL fusion. ALEX HUI PA-C [address], [place], [address], [facility] 12/28/2024 10:20:40 OBGyn Episode No OBEpisode recorded.
--- OUTSIDE RECORDS SUMMARY | 2025-01-14 11:50 | XMS_ITS | Clinical Summary ---
Author Organization [facility] Address [address] [place] [phone] Phone Care Team Providers Care Rat Culturist Name Role Phone Ling Kellogg MD Primary Care Provider [phone] Social History Tobacco Use Types Packs/Day Years Used Date Smoking Tobacco: Never Assessed Comments Unknown Sex and Gender Information Value Date Recorded Sex Assigned at Not on file Legal Sex Female 12:03 PM EST Gender Identity Not on file Sexual Orientation Not on file Plan of Treatment Upcoming Encounters Date Type Department Care Team (Latest Contact Info) Description 01/20/2025 2:00 PM EDT Hospital Encounter [address] [phone] Yaya Perez MD [address] [place] [address] 01/20/2025 2:00 PM EDT - 01/20/2025 4:30 PM EDT Surgery [facility] OR [address] [place] [phone] Yaya Perez MD [address] [place] [id number] L4-5 DECOMPRESSION LUMBAR [74667 (CPT??)] Scheduled Procedures Name Priority Associated Diagnoses Date/Ti me DECOMPRESSION LUMBAR Intervertebral disc disorders with radiculopathy, lumbar region 01/20/2025 2:00 PM EDT Health Maintenance Due Date Last Done Comments Breast Cancer Screening 1960 DTaP,Tdap,and Td Vaccines (1 - Tdap) 1977 Pneumococcal Vaccine: 50+ Ye ars (1 of 1 - PCV) 2008 Zoster Vaccines (1 of 2) 2008 COVID-19 Vaccine (1 - 2023-2 5 season) 2024 Influenza Vaccine (#1) 2024 RSV Immunization Patients 60 + Years Old (1 - 1-dose 75+ series) 2033 HIB Vaccines Aged Out No longer eligi ble based on patient's age to complete this topic HPV Vaccines Aged Out No longer eligi ble based on patient's age to complete this topic Hepatitis A Vaccines Aged Out No long er eligible based on patient's age to complete this topic Hepatitis B Vaccines Aged Out No long er eligible based on patient's age to complete this topic IPV Vaccines Aged Out No longer eligi ble based on patient's age to complete this topic MMR Vaccines Aged Out No longer eligi ble based on patient's age to complete this topic Meningococcal ACWY Vaccine Aged Out N o longer eligible based on patient's age to complete this topic Meningococcal B Vacine Aged Out No lo nger eligible based on patient's age to complete this topic RSV Immunization Patients Un daniele 20 months Aged Out No longer eligible b ased on patient's age to complete this topic Varicella Vaccines Aged Out No longer eligible based on patient's age to complete this topic Care Teams Rat Culturist Relationship Specialty Start Date End Date Ling Kellogg MD PCP - General Option Trader 06/20/15
== END 2025-01-14 11:19 | disposition home or self-care (01) ==
PROVIDERS: PCP Internal Medicine; Visit Provider Internal Medicine
DX: M54.30 Sciatica, unspecified side (principal)

== ENCOUNTER 2025-09-09 09:23 | Outpatient (REF) | payer MEDICARE, SELFPAY ==
[2025-09-09 09:42] LABS: MANUAL DIFF FLAG NO
[2025-09-09 10:43] LABS: Hematocrit 47.2 % (37.0-47.0); Hemoglobin 14.2 g/dl (12.0-16.0); Imm Gran Abs Auto 0.01 X10*3/uL (0.00-0.03); Imm Gran Pct Auto 0.2 % (0.0-0.4); Lymphocytes Absolute Auto 2.1 X10*3/uL (1.2-4.9); Mean Corpuscular HGB Conc 30.1 g/dl (31.0-35.0); Mean Corpuscular Hemoglobin 26.4 pg (27.0-33.0); Mean Corpuscular Volume 87.7 fL (80.0-98.0); NRBC Abs Auto 0.000 X10*3/uL (0.0-0.012); NRBC Pct Auto 0.0 /100WBC (0.0-0.2); Platelet Count 310 X10*3/uL (160-400); Red Blood Count 5.38 X10*6/uL (4.20-5.50); White Blood Count 4.8 X10*3/uL (4.8-10.8)
--- OUTSIDE RECORDS SUMMARY | 2025-09-09 10:49 | XMS_ITS | Clinical Summary ---
Author Organization [facility] Address [address] [place] [address] Care Team Providers Care Forestry Technical Officer Name Role Phone Ling Kellogg MD Primary Care Provider [phone] Allergies Active Allergy Reactions Criticality Noted Date Comments Clarithromycin 09/09/2015 Medications Medication Sig Dispensed Refills Start Date End Date Status calcium acetate (PHOSLO) 667 MG capsule Take 1,334 mg by mouth 3 (three) times a day with meals. 0 Active b swkerls-Y-uerxg acid 1 MG capsule Take 1 capsule by mouth daily. 0 Active Fish Oil-Cholecalciferol (FISH OIL + D3) 9110-2539 MG-UNIT CAPS Take by mouth. 0 Active [...] 1 - PCV) 2023 Influenza Vaccine (#1) 2025 RSV Adult > 60+ Yrs or Pregn ant (1 - 1-dose 75+ series) 2033 Hepatitis B Vaccines Aged Out No long er eligible based on patient's age to complete this topic RSV Ped < 20 months Aged Out No longe r eligible based on patient's age to complete this topic Advance Directives For more information, please contact: [phone] Documents on File Type Date Recorded Patient Wood Borer Expl anation Advance Directive and Living Will 04/27/2016 1:07 PM Care Teams Forestry Technical Officer Relationship Specialty Start Date End Date Ling Kellogg MD PCP - General Cash Sales Audit Clerk 06/20/15
--- OUTSIDE RECORDS SUMMARY | 2025-09-09 10:49 | XMS_ITS | Clinical Summary ---
Author Organization [facility] Address [address] [place] [address] Care Team Providers Care Admissions Manager Rn Name Role Phone Pcp, No MD Primary [...] - Tdap) 1976 Hepatitis C Screening 1976 Pneumococcal Vaccine, 50+ Years (1 of 1 - PCV) 2008 Zoster Vaccines (1 of 2) 2008 COVID-19 Vaccine ( season) 2025 07/17/2023, 08/14/2022, 02/23/2022, Additional history exists Influenza Vaccine (#1) 2025 HPV Vaccines Aged Out No longer eligi [...] to complete this topic Insurance Care Teams Admissions Manager Rn Relationship Specialty Start Date End Date Laureen Elizondo MD [address] [place] [address] PCP - General 02/11/18
--- OUTSIDE RECORDS SUMMARY | 2025-09-09 10:49 | XMS_ITS ---
Author Name [facility] Organization Unknown History of Medication Use Medication Directions Dispensed Refills Start Date End Date Stat us acetaminophen (TYLENOL) tablet 1,000 mg 1,000 mg, oral, Once, On Sat01/20/25 at 1215, For 1 dose, Preprocedure, Give 1 hour prior to surgery 01/20/2025 completed scopolamine (TRANSDERM-SCOP) 1 mg over 3 days patch - ADS Override Pull Starting on Sat01/20/25 at 1258, For 1 dose, Created by cabinet override Apply to hairless area of skin behind the ear. 01/20/2025 completed lactated Ringer's infusion 100 mL/hr, intravenous, Continuous, Starting on Sat01/20/25 at 1215, Preprocedure 01/20/2025 active scopolamine (TRANSDERM-SCOP) patch 1 patch 1 patch, Topical, Administer over 72 Hours, Once, On Sat01/20/25 at 1315, For 1 dose, Preprocedure, For placement in pre-op holding area Apply to hairless area of skin behind the ear. 01/20/2025 active sodium chloride 0.9 % flush 10 mL [Order 1 Start] Name: Insert peripheral IV Signed Summary: STAT, Once, On Sat01/20/25 at 1149, For 1 occurrence, Preprocedure [Order 1 End] [Order 2 Start] Name: Maintain IV access Signed Summary: Until discontinued, Starting on Sat01/20/25 at 1149, Until Specified, Preprocedure [Order 2 End] [Order 01/20/2025 active Neurontin 300 mg capsule Take 1 capsule 3 times a day by oral route. 01/05/2025 active tramadol 50 mg tablet Take 1 to 2 tablets every 6-8 hours 01/05/2025 active gabapentin (NEURONTIN) 300 mg capsule Take 1 capsule (300 mg total) by mouth 3 (three) times a day. 01/05/2025 active traMADoL (ULTRAM) 50 mg tablet Take 1 tablet (50 mg total) by mouth every 4 (four) hours if needed. 01/05/2025 active cyclobenzaprine 10 mg tablet Take 1 tablet as needed by oral route at bedtime for 7 days. 12/28/2024 active prednisone 10 mg tablet Take 5 tablet(s) EVERY DAY by oral route for 2 days, then decrease by 1 pill every 2 days until gone (5,5,4,4,3,3,2,2, 1,1) 12/28/2024 active pravastatin (PRAVACHOL) 40 mg tablet Take 1 tablet (40 mg total) by mouth at bedtime. 11/18/2024 active leflunomide (ARAVA) 10 mg tablet Take 1 tablet (10 mg total) by mouth 1 (one) time each day. 11/03/2024 active pravastatin (PRAVACHOL) 40 mg tablet 08/29/2023 active leflunomide (ARAVA) 20 mg tablet Take 10 mg by mouth. 10/09/2016 active meloxicam 15 mg tablet 5 completed methocarbamol 750 mg tablet Take 1 tablet 4 times a day by oral route as needed. 5 completed oxycodone 5 mg tablet Take 1 tablet every 4 hours by oral route as needed. 5 completed tramadol 50 mg tablet active Neurontin 300 mg capsule active gabapentin 300 mg capsule Take 1 capsule 3 times a day by oral route. active leflunomide 10 mg tablet active ondansetron HCl 4 mg tablet active pravastatin 40 mg tablet active propranolol 20 mg tablet active cholecalciferol (VITAMIN D-3) 25 mcg (1,000 unit) tablet Take 1 tablet (1,000 Units total) by mouth 1 (one) time each day. active coenzyme Q-10 30 mg capsule Take 1 capsule (30 mg total) by mouth 1 (one) time each day. active estradioL (ESTRACE) 0.01 % (0.1 mg/gram) vaginal cream Insert 2 g into the vagina daily. active estradioL (ESTRACE) 0.01 % (0.1 mg/gram) vaginal cream Insert 2 g into the vagina in the morning. active No known medications No known medications active propranoloL (INDERAL) 20 mg tablet Take 1 tablet (20 mg total) by mouth 3 (three) times a day if needed. active propranoloL (INDERAL) 20 mg tablet Take 20 mg by mouth in the morning and 20 mg at noon and 20 mg before bedtime. active Allergies Allergen Reaction Severity Comment Documented Date Source Statu s CLARITHROMYCIN OTHER Weird reactio n insomnia and jumping out of her skin 09/09/2015 [facility] active BIAXIN [facility] Problems Problem Status Onset Date Problem Type Date of Resolution Source Pain active EncounterDiagnosisAct [facility] Lumbar radiculopathy active 2024-12-28 ProblemAct [facility] Lumbar disc prolapse with radiculopathy active 2025-01-11 ProblemAct [facility] History of lumbar discectomy active 2025-03-01 ProblemAct [facility] Failure of joint fusion, initial encounter ([facility]) active EncounterDiagnosisAct [facility] Right foot pain active EncounterDiagnosisAct [facility] Hallux rigidus of right foot active EncounterDiagnosisAct [facility] Ganglion cyst of right foot active EncounterDiagnosisAct [facility] Encounters Encounter Type Encounter Reason Primary Diagnosis Location Date Ambulatory [facility] 02/07/2025 Ambulatory [facility] 01/30/2025 Ambulatory Pain, unspecified Pain, unspecified [facility] 01/20/2025 Ambulatory Pain, unspecified Pain, unspecified [facility] 01/20/2025 Ambulatory Other specified postprocedural states Other specified postprocedural states [facility] 01/20/2025 Ambulatory [facility] 01/12/2025 Ambulatory [facility] 01/07/2025 Ambulatory [facility] 01/06/2025 Ambulatory [facility] 01/05/2025 Ambulatory [facility] 01/04/2025 Ambulatory [facility] 01/04/2025 Ambulatory [facility] 12/29/2024 Ambulatory [facility] 12/28/2024 Ambulatory [facility] 12/28/2024 Ambulatory [facility] 12/28/2024 Ambulatory [facility] 12/28/2024 Ambulatory [facility] 12/28/2024 Ambulatory [facility] 12/28/2024 Ambulatory Pain in right foot Pain in right foot [facility] 09/11/2023 Ambulatory Pain in right foot Pain in right foot [facility] 09/11/2023 Care Team Organization Name Specialty Phone Email Start Date End Da te [facility] 01/28/2025 [facility] 01/20/2025 [facility] 03[facility]04/2024 [facility] 09/11/202311/2022
--- OUTSIDE RECORDS SUMMARY | 2025-09-09 10:49 | XMS_ITS | Clinical Summary ---
Author Organization [facility] Address [address] [facility]], [place] [address] Phone Care Team Providers Care Agricultural Equipment Sales Engineer Name Role Phone Ling Kellogg MD Primary Care Provider Allergies Active Allergy Reactions Criticality Noted Date Comments Clarithromycin Other 09/09/2015 Weird reaction insomnia and jumping out of her skin Medications leflunomide (ARAVA) 10 mg tablet Take 1 tablet (10 mg total) by mouth 1 (one) time each day. 11/03/2024 Active pravastatin (PRAVACHOL) 40 mg tablet Take 1 tablet (40 mg total) by mouth at bedtime. 11/18/2024 Active coenzyme Q-10 30 mg capsule Take 1 capsule (30 mg total) by mouth 1 (one) time each day. Active traMADoL (ULTRAM) 50 mg tablet Take 1 tablet (50 mg total) by mouth every 4 (four) hours if needed. 01/05/2025 Active estradioL (ESTRACE) 0.01 % (0.1 mg/gram) vaginal cream Insert 2 g into the vagina daily. Active propranoloL (INDERAL) 20 mg tablet Take 1 tablet (20 mg total) by mouth 3 (three) times a day if needed. Active cholecalciferol (VITAMIN D-3) 25 mcg (1,000 unit) tablet Take 1 tablet (1,000 Units total) by mouth 1 (one) time each day. Active vit C/E/Zn/coppr/lissett tein/zeaxan (EYE HEALTH VITAMIN-MINERAL ORAL) Take by mouth. Active vygrxkpd-jhq-fl lic acid-biotin 400-400 mcg capsule Take by mouth. Active magnesium 250 mg tablet Take by mouth. Active gabapentin (NEURONTIN) 300 mg capsule Take 1 capsule (300 mg total) by mouth 3 (three) times a day. 01/05/2025 Active Surgical History Surgery Date Site/Laterality Comments TUBAL LIGATION SECTION, LOW TRANSVERSE x3 TOE FUSION COLONOSCOPY UPPER GASTROINTESTINAL ENDOSCOPY Medical History Medical History Date Comments Adverse effect of anesthesia Con cerned she is going to get ill from the anesthesia- with her spinal during childbirth she got very nauseated and vomitting PONV (postoperative nausea and vomiting) Hyperlipidemia Dry eye Wears glasses Family history of bleeding o r clotting disorder Migraine Family history of benign essential tremor very minor take propanolol as needed RA (rheumatoid arthritis) (C MS/[facility] V24, CMS/[facility] V28) Family History Medical History Relation Name Comments Factor V Leiden deficiency Brother 1 No Known Problems Brother 2 Heart disease Father Other Father bacterial endoc artitsis Lung cancer Mother Factor V Leiden deficiency Sister Relation Name Status Comments Brother 1 Alive Brother 2 Alive Father Mother Sister Alive Social History Tobacco Use Types Packs/Day Years Used Date Smoking Tobacco: Never Smokeless Tobacco: Never Tobacco Cessation:Counseling Given: Not Answered Alcohol Use Standard Drinks/Week Comments Not Currently 0 (1 standard drink = 0.6 oz pur e alcohol) Interpersonal Safety Answer Date Record ed Physical Abuse Unrecognized value 01/20/2025 Verbal Abuse Unrecognized value 01/20/2025 Comments Unknown Sex and Gender Information Value Date Recorded Sex Assigned at Female 01/19/2025 12:25 PM EDT Legal Sex Female 12:03 PM EST Gender Identity Female 01/19/2025 12:25 PM EDT Sexual Orientation Straight 01/19/2025 12 :25 PM EDT Obstetrics History Last Filed Vital Signs Vital Sign Reading Time Taken Comments Blood Pressure 158/80 01/20/2025 4:08 PM EDT Pulse 69 01/20/2025 4:08 PM EDT Temperature 36.1 C (96.9 F) 01/20/2025 4:08 PM EDT Respiratory Rate 16 01/20/2025 4:08 PM EDT Oxygen Saturation 96% 01/20/2025 4:08 PM EDT Inhaled Oxygen Concentration - - Weight 67.6 kg (149 lb) 01/20/2025 12:08 PM EDT Height 167.6 cm (5' 6 ) 01/20/2025 12:08 PM EDT Body Mass Index 24.05 01/20/2025 12:08 PM EDT Plan of Treatment Health Maintenance Due Date Last Done Comments Breast Cancer Screening 1960 Colorectal Cancer Screening: Colonoscopy 1960 DTaP,Tdap,and Td Vaccines (1 - Tdap) 1977 Pneumococcal Vaccine: 50+ Years (1 of 1 - PCV) 2008 Zoster Vaccines (1 of 2) 2008 Depression Screening 11/11/2024 Hepatitis C Screening 01/15/2025 Medicare Annual Wellness Visit 01/15/2025 Osteoporosis Screening (Bone Density Screening) 01/15/2025 Social Influencers of Health Screening 01/15/2025 COVID-19 Vaccine ( season) 2025 08/05/2024, 07/17/2023, 08/14/2022, Additional history exists Influenza Vaccine (#1) 2025 , 07/17/2023, 08/14/2022, Additional history exists Falls Risk Assessment 01/20/2026 01/20/2025 RSV Immunization Adult Patients (1 - 1-dose 75+ series) 2033 HIB [...] age to complete this topic Meningococcal B Vaccine Aged Out No l onger eligible based on patient's age to complete this topic RSV Immunization Patients Under 20 months Aged Out No longer eligible based on patient's age to complete this topic Varicella Vaccines Aged Out No longer eligible based on patient's age to complete this topic Medical Devices Implanted Type Area Wildlife Technician Device Identifier Shelf Expiration Date Model / Serial / Lot [employer] Hemostatic Matrix - Sn/A - [id number] Implanted:Qty: 1 on 01/20/2025 by Yaya Perez MD at [facility] Hemostasis N/A: Spine Lumbar [employer] 09/24/2026 [id number] / N/A / [id number] Description:Thrombin [id number] exp 04-09-2026 Saline [id number] exp 01-08-2027 Insurance [place] [address] Advance Directives * Full Code - Default (Latest Code Status on File) Date Activated Date Inactivated Comments 01/20/2025 11:48 AM 01/20/2025 6:50 PM This is ord er is used when code status has not been discussed with the patient, or code status is otherwise unknown/unconfirmed To update the patient's code status, place a code status order. Do not modify or discontinue any currently active code status orders. Care Teams Agricultural Equipment Sales Engineer Relationship Specialty Start Date End Date Ling Kellogg MD PCP - General Internal Medicine 01/19/25
--- OUTSIDE RECORDS SUMMARY | 2025-09-09 10:49 | XMS_ITS | Clinical Summary ---
Author Organization [facility] Address [address] [place] [address] Care Team Providers Care Mechatronics Technician Name Role Phone Ling Kellogg MD Primary Care Provider [phone] Social History Tobacco Use Types Packs/Day Years Used Date Smoking Tobacco: Never Assessed Comments Unknown Sex and Gender Information Value Date Recorded Sex Assigned at Not on file Legal Sex Female 7:56 PM EST Gender Identity Not on file Sexual Orientation Not on file Plan of Treatment Health Maintenance Due Date Last Done Comments Advance Care Planning 1960 Hepatitis C Virus Screening 1960 DTaP/Tdap/Td Vaccines (1 - Tdap) 1977 Pneumococcal Vaccines 50+ (1 of 1 - PCV) 2008 Zoster (Shingles) Vaccine (1 of 2) 2008 COVID-19 Vaccine ( - 2023-2 5 season) 2025 RSV Vaccine 50 years and old er and Patients (1 - 1-dose 75+ series) 2033 Hepatitis B Vaccines Aged Out No long er eligible based on patient's age to complete this topic Care Teams Mechatronics Technician Relationship Specialty Start Date End Date Ling Kellogg MD [address] [place] [id number] PCP - General
[2025-09-09 11:15] LABS: Alanine Aminotransferase 36 U/L (0-31); Albumin Level 4.8 g/dL (3.5-5.0); Alkaline Phosphatase 83 U/L (39-117); Anion Gap 12 (12-20); Aspartate Amino Transferase 34 U/L (5-31); Blood Urea Nitrogen 14 mg/dL (9-16); Calcium 9.6 mg/dL (8.4-10.2); Carbon Dioxide 28 mmol/L (22-29); Chloride 105 mmol/L (96-108); Cholesterol 196 mg/dL (<200); Estimated Glomerular Filt Rate > 60; HDL Cholesterol 71 mg/dL (>40); Potassium 4.2 mmol/L (3.3-5.1); Sodium 141 mmol/L (135-145); Total Protein 7.4 g/dL (6.5-8.0); Triglycerides 71 mg/dL (<150)
== END 2025-09-09 09:24 | disposition home or self-care (01) ==
LOC: HO.LAB 09:23
PROVIDERS: Visit Provider Internal Medicine
DX: Z00.00 Encounter for general adult medical examination without abnormal findings (principal); E78.5 Hyperlipidemia, unspecified; M06.9 Rheumatoid arthritis, unspecified
CPT/HCPCS: 36415; 80053; 80061; 84443; 85025

== ENCOUNTER 2025-10-27 09:45 | Outpatient (AMB) | payer MEDICARE, SELFPAY ==
[2025-10-27 09:57] VITALS: BP 148/86; PULSE 75; RESP 16; TEMP 36.7; O2SAT 96; BMI 25.2
--- NOTE | 2025-10-27 09:57 | A.OFFPC_ITS ---
Vital Signs 10/27/25 09:57 10/27/25 20:57 Height 5 ft 6 in Weight 156 lb BMI 25.2 BP 148/86 H 120/78 Blood Pressure Location Lt brachial Rt brachial Position Sitting Sitting Respiration 16 Pulse 75 Pulse Source Pulse Oximeter Temp 98.1 F Temp Source Oral Pulse Oximetry (%) 96 Oxygen Delivery Method Room Air Intake Visit Reasons: Annual PE - see comments Intake Note: Pt is here today for a PE. Allergies clarithromycin (From Biaxin) Allergy (Unknown, Verified 10/27/25 10:22) Insomnia Tobacco use date assessed: 10/27/25 Fall risk assessment: No Falls in past year Last assessed Fall Risk: 10/27/25 Dental Screening Dental Screen Date: 01/14/25 HPI Annual PE - see comments HPI Details Pt presents for PE. Pt is planning to move to [place]. [facility] Medical History (Updated 10/27/25 @ 20:59 by Ling Kellogg MD) Tremor Normal breast exam Carpal tunnel syndrome Anxiety Right hand weakness Hyperlipidemia Annual physical exam Osteoarthritis Rheumatoid arthritis Surgical History History of back surgery H/O colonoscopy Family History Father Hypertension History of heart bypass surgery Heart attack Mother Lung cancer Social History Housing: House Alcohol intake: current Alcohol intake frequency: a few times a week Patient Tobacco Use Status: Never used Tobacco e-Cigarette/Vaping Use: Never Used service: No Current occupational status: retired Cognitive needs: No Hearing needs: No Vision needs: Yes Questionnaire Thrive Questionnaire Date Thrive assessed: 01/13/25 I am a: Patient What is your living situation today?: I have a steady place to live Within the past 12 months, did the food you bought not last and you didn't have the money to get more?: Never true Within the past 12 months, did you worry whether your food would run out before you got money to buy more?: Never true Do you have trouble paying for medicines?: No Do you have trouble getting transportation to medical appointments?: No Do you have trouble paying your heating and electricity bill?: No Do you have trouble taking care of your child, family member or friend?: No Do you have trouble with day-to-day activities such as bathing, preparing meals, shopping, managing finances, etc.?: No Are you currently unemployed and looking for a job?: No Are you interested in more education?: No Please select the resources that you would like help with: None Currently or been in a relationship where the following occur: No concerns reported THRIVE Score: 0 JEANNIE-7 AMB Questionnaire JEANNIE-7 Date JEANNIE - 7 assessed: 01/14/25 Source: Developed by Drs. Iron Garza, Taniya Lyons, John Reid and colleagues, with an educational allan from [employer]. Review of Systems Const All systems reviewed & are unremarkable except as noted in HPI and below Eyes Reports no additional complaints ENT Reports no additional complaints Card Reports no additional complaints Resp Reports no additional complaints GI Reports no additional complaints Reports no additional complaints Physical exam (Primary Care) Vital Signs: Last Vital Signs Temp 98.1 F 10/27/25 09:57 Pulse 75 10/27/25 09:57 Resp 16 10/27/25 09:57 BP 148/86 H 10/27/25 09:57 Pulse Ox 96 10/27/25 09:57 Oxygen Delivery Method Room Air 10/27/25 09:57 BMI result Body Mass Index 25.2 Tobacco/Smoking Status: Tobacco use Status Tobacco use date assessed 10/27/25 10/27/25 10:27 Patient Tobacco Use Status Never used Tobacco 10/27/25 09:57 e-Cigarette/Vaping Use Never Used 10/27/25 09:57 Thrive Assessment: Date of Thrive Assessment Date Thrive assessed 01/13/25 10/27/25 09:57 Currently or been in a relationship where the following occur: No concerns reported Const General: no acute distress HENMT Head: Yes normal to inspection Ears: TM's normal bilaterally Face and sinus: Yes normal facial exam Mouth: Normal oral and palatal mucosa present Throat: Yes posterior oropharynx normal Eyes General: appearance normal, both eyes and all related structures Neck Neck: Yes no lymphadenopathy and Yes supple Resp Effort & Inspection: normal respiratory effort Auscultation: clear to auscultation bilaterally Cardio Rhythm: regular rhythm Heart sounds: S1 normal heart sound present and S2 normal heart sound present GI Inspection: Yes normal to inspection Palpation (GI): Soft to palpation Percussion: Yes normal to percussion Auscultation: normal bowel sounds Coding Level of Care Code Est Pt Prev Care >65y(96641) Diagnoses Anxiety F41.9 Rheumatoid arthritis M06.9 Annual physical exam Z00.00 Assessment & Plan Assessment & Plan (1) Anxiety: Code(s): F41.9 - Anxiety disorder, unspecified Category: Medical Plan: Stress management regular physical activity discussed with the patient (2) Rheumatoid arthritis: Comment: f/u [facility] Code(s): M06.9 - Rheumatoid arthritis, unspecified Category: Medical Plan: Follow-up with rheumatology continue current treatment (3) Annual physical exam: Code(s): Z00.00 - Encounter for general adult medical examination without abnormal findings Category: Medical Plan: Well-balanced diet regular physical activity discussed with the patient. She is up-to-date with the mammogram Pap smear and colonoscopy. Patient will be moving to [place] Medications: Refilled ondansetron HCl 4 mg PO BEDTIME PRN 14 tabs 0RF nausea and vomiting 4 days pravastatin 40 mg PO DAILY 90 tabs 3RF
--- OUTSIDE RECORDS SUMMARY | 2025-10-27 11:26 | XMS_ITS | Clinical Summary ---
Author Organization [facility] Address [address] [place] [address] Phone Care Team Providers Care Wwe Wrestler Name Role Phone Ling Kellogg MD Primary Care Provider [phone] Allergies Active Allergy Reactions Criticality Noted Date [...] HEALTH VITAMIN-MINERAL ORAL) Take by mouth. Active wsrhrtms-qix-ft lic acid-biotin 400-400 mcg capsule Take by [...] propanolol as needed RA (rheumatoid arthritis) (C [facility] V24, CMS/[facility] V28) Family History Medical History [...] Orientation Straight 01/19/2025 12 :25 PM EDT Last Filed Vital Signs Vital Sign Reading [...] this topic Medical Devices Implanted Type Area Tip Bander Device Identifier Shelf Expiration Date Model / Serial / Lot [employer] Hemostatic Matrix - Sn/A - [id number] Implanted:Qty: 1 on 01/20/2025 by Yaya Perez MD at [facility] Hemostasis N/A: Spine Lumbar [employer] 09/24/2026 [id number] / N/A / [id number] Description:Thrombin [id number] exp 04-09-2026 Saline [id number] exp 01-08-2027 Insurance [employer] , [place] [id number] Advance Directives * Full Code - Default [...] currently active code status orders. Care Teams Wwe Wrestler Relationship Specialty Start Date End Date Ling Kellogg MD PCP - General Internal Medicine 01/19/25
--- OUTSIDE RECORDS SUMMARY | 2025-10-27 11:26 | XMS_ITS | Data Portability ---
Author Organization [place] [facility] [place] Address [address] [place] [address] Care Team Providers Care Multifold Operator Name Role Phone ARABELLA IVERSON Primary Care Provider [phone] ARABELLA IVERSON Referring Provider [phone] OSVALDO HOROWITZ OTHER Assessment Encounter Date Assessment [...] follow-up with Dr. Perez on in the [place] office to review the MRI findings and options. Patient was seen and evaluated by Alex Hui PA-C in indirect conjunction with Dr. Perez. The provider agrees with the history, physical examination, recommended tests/diagnostic imaging, and treatment plan. 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 She had an MRI at [facility] which suggest disc protrusion worse on the [...] times per day Physical therapy Repeat MRI ([facility] to call) Follow-up January 11 This encounter required over 40 minutes of time including chart review, preparation, and documentation, face time with the patient as well as review of other documents and studies. 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 She is seeing her rn advice in the near future. Hopefully he will weigh in on the delay in surgery secondary to immunosuppression. She understands this increases her chance for infection. Not available 01/11/2025 10:00:18 02/01/2025 02/01/2025 64-year-old edgar le status post right L4-5 discectomy on January 20, 2025 returns for her first postoperative evaluation. She has active but well-controlled rheumatoid arthritis. Today she returns with her . She is in excellent spirits. Her pain is essentially gone. Her wound is healing nicely. She has no distal weakness. We discussed gradual reactivation. She will follow-up in 1 month which should be a final clinical visit. [email or web address] Not available 02/01/2025 09:56:02 03/01/2025 03/01/2025 64-year-old erik luu with well-controlled rheumatoid arthritis returns for 6-week evaluation status post L4-5 discectomy in January 20, 2025. When we saw her on February 01, 2025 she was doing very well. Today she reports that she continues to do well but has issues with her gait. She has little in the way of back or leg pain. She is walking 3 miles per day. If she overdoes it she gets an achy back. Physical examination: She has 4+ strength in the right anterior tib. I believe she is intermittently poking her foot because of very mild anterior tib weakness. Although no guarantees can be given we anticipate this will resolve over time. Reasonably her options include using a cane in the left hand, getting an AFO or wearing stiffer hightop shoes. I reiterated the risk of falling several times. She is not interested in the cane or the brace. She is going to try the shoes. I asked her to walk around the store to make sure she has the appropriate shoe which keeps her foot from catching. She is referred to physical therapy to develop a home exercise program. For now no specific return appointment is scheduled but if in a few months if she does not appreciate improving strength she will contact us [email or web address] Not available 03/01/2025 11:20:16 Plan of Treatment Reminders Order Date Submit Date Provider Last Modified By Organization Details Last Modified Time Details Appointments None recorded. Lab None recorded. Referral orthopedic physical therapist referral - Additional Comments:Ac tive rehab/home exercise program 2024 025 [email or web address] Not available 11:18:34 orthopedic physical therapist referral - Additional Comments: Active rehab home exercise program 3 times per week for 1 month. Please notify our office immediately she had her surgery she is doing okay if the therapy is not tolerated 2024 025 CORINE Not available 10:10:28 Procedures None recorded. Surgeries lumbar spine surgery (SURG) 2024 025 CORINE Not available 09:11:49 Imaging MRI, lumbar spine, w/o contrast - Acute back pain with lower extremity radiculopat hy. Significant weakness in the ankle. 2024 025 CORINE [facility] ([facility]), [address], [place], [address], 5 08:27:52 XR, lumbosacral spine, 2 or 3 view [facility], [address], [place], [address], 5 17:09:38 Medication Orders Neurontin 300 mg capsule [address] [facility], [address] [place], [address], 5 09:51:28 tramadol 50 mg tablet [address] [facility] [address], [address] [place], [address], 5 09:52:32 prednisone 10 mg tablet [address] [facility] [address], [address] [place], [address], 09:52:28 cyclobenzap rine 10 mg tablet [address] [facility] [address], [address] [place], [address], 16:40:11 Patient TargetsNo targets recorded. Patient Instructions Encounter Date Encounter Id Patient Instructions Last Modified By Organization Details Last Modified Time 12/28/2024 [id number] Radiographs: 2 views of the lumbar spine were obtained on 12/28/2024 in the [place] office. X-rays demonstrated normal bone mineralization. Straightened alignment. Decreased disc space at L5-S1. Calcification noted between L1 and L2. Vertebral height was well-maintained. No evidence of spondylolisthesis or spondylolysis. No evidence of acute injury or fracture. Images interpreted by: Alex Hui PA-C [email or web address] Not available 12/28/2024 09:57:47 Reason for Referral Additional Comments: Active rehab home exercise program 3 times per week for 1 month. Please notify our office immediately she had her surgery she is doing okay if the therapy is not tolerated Referring Physician: Yaya Perez, Orthopedic Surgery, Encounter Date: 01/05/2025 Additional Comments:Active r ehab/home exercise program Referring Physician: Yaya Perez, Orthopedic Surgery, Encounter Date: 03/01/2025 Results Created Date Observation Date Name Description Value Unit Range Abnormal Flag Note LastModifiedBy Organization Detail LastModifiedTime 01/01/2001/01/2025 MRI, lumba r spine , w/o contr ast No observ ation record ed. [email or web address] [facility] ([facility]) [address] [place] [address], [id number], 01/02/2025 13:03:26 01/01/20 25 01/01/2025 MRI, lumba r spine , w/o contr ast No observ ation record ed. [email or web address] [facility] ([facility]) [address] [place] [address], [id number], 01/02/2025 13:03:26 01/07/20 25 01/07/2025 MRI, lumba r spine , w/o contr ast No observ ation record ed. [email or web address] [facility] ([facility]) [address] [place] [address], [address], 01/10/2025 17:33:17 Result Notes None recorded. Problems Name Problem SNOMED Code Status Onset Date Resolution Date Notes Provider Name and Address Organization Details Recorded Time Lumbar radiculopat 520646294 Active 2024 CHILANGO FRAZIER PA-C [address], [place], [address], [place] [facility], [facility] 5 10:30:40 Lumbar disc prolapse with radiculopat hy 044391943 Active 2024 Yaya Perez MD [address], [place], [address], [place] [facility], [facility] 5 09:34:24 History of lumbar discectomy 0749196226582 9103 Active 2024 Yaya Perez MD [address], [place], [address], [facility], P 5 11:17:27 Problem Notes None recorded. Procedures Surgical History Date Name Laterality Status Provider Name and Address Organization Details Recorded Time LUMBAR SPINE SURGERY (SURG) completed Leola Blakely [facility], P 01/21/2025 09:11:49 operative procedure on foot completed Katlin Coradoes [facility], P 12/28/2024 09:48:55 Imaging Results None recorded. Procedure Notes None recorded. Medical Equipment None Reported. Allergies Allergen ID Allergen Name Allergen Category Reaction Reaction Severity Criticality Documentation Date Start Date Code Code System Note Provider Name and Address Organization Details Recorded Time Biaxin medicatio n Not available Not available Not available 12/28/2024 9 RxNorm Katlin Meyers [facility], [facility] 09:47:10 Medications Name Sig Start Date Stop [...] 2 days until gone (5,5,4,4, 3,3,2,2,1 ,1) 02/01 completed Not Available Not Available Not Available pravastatin 40 mg tablet active Not Available Not Available Not Available meloxicam 15 mg tablet 02/01 completed Not Available Not Available Not Available ondansetron HCl 4 mg tablet active Not Available Not Available Not Available leflunomide 10 mg tablet active Not Available Not Available Not Available tramadol 50 mg tablet Take 1 to 2 tablets every 6-8 hours 02/01 completed Not Available Not Available Not Available methocarbam ol 750 mg tablet Take 1 tablet 4 times a day by oral route as needed. 02/01 completed Not Available Not Available Not Available gabapentin 300 mg capsule Take 1 capsule 3 times a day by oral route. 02/01 completed Not Available Not Available Not Available propranolol 20 mg tablet active Not Available Not Available Not Available oxycodone 5 mg tablet Take 1 tablet every 4 hours by oral route as needed. 02/01 completed Not Available Not Available Not Available Vitals Date Recorded Body height Body mass index (BMI) Body weight Provider Name and Address Organization Details Last Updated DateTime 12/28/2024 167.64 cm 24.2 kg/m2 95751.86 g [facility] 12/28/2024 09:47:19 Date Recorded Body height Provider Name an d Address Organization Details Last Updated DateTime 01/05/2025 167.64 cm [facility], [facility] 01/05/2025 16:12:05 Date Recorded Body height Body mass index (BMI) Body weight Provider Name and Address Organization Details Last Updated DateTime 01/11/2025 167.64 cm 24.4 kg/m2 91291.45 g [facility] - [facility] 01/11/2025 09:15:48 Date Recorded Body mass index (BMI) Body weight Provider Name and Address Organization Details Last Updated DateTime 02/01/2025 24.5 kg/m2 [address] [facility] 02/01/2025 09:49:38 Date Recorded Body height Provider Name an d Address Organization Details Last Updated DateTime 02/01/2025 [address] [facility] 02/01/2025 09:48:05 Date Recorded Body height Body mass index (BMI) Body weight Provider Name and Address Organization Details Last Updated DateTime 03/01/2025 167.64 cm 24.5 kg/m2 74133.[address] [place] [facility] 03/01/2025 11:08:47 Social History None recorded. Functional Status Question Answer Note LastModified by Organizat ion Details LastModified Time How many times per week do you consume alcohol? 1-2 times per week Information not available 12/28/2024 Do you use any illicit or recreational drugs? No Information not available 12/28/2024 Do you or have you ever used any other forms of tobacco or nicotine? No Information not available 12/28/2024 What is your level of alcohol consumption? Occasional Information not available 12/28/2024 Mental Status None recorded. Family History Relationship [...] Diagnosis SNOMED-CT Code Diagnosis ICD10 Code Diagnosis IMO Codes Diagnosis Note [id number] ROBERTO [facility] [address] [place] [phone] 12/28/2024 09:12:50 12/28/2024 09:58:47 Low back pain 475787638 M54.50 [id number] Lumbar radiculopathy 128 282800 M54.16 [id number] MD THOMAS Romero[address] [place] [address] 01/05/2025 15:58:36 01/05/2025 16:52:25 Lumbar radiculopathy 892909078 M54.16 9527623 [id number] MD THOMAS Romero [address] [place] [phone] 01/11/2025 08:58:29 01/11/2025 09:51:09 Lumbar disc prolapse with radiculopathy 319281665 M51.16 [id number] MD THOMAS Romero [address] [address] 02/01/2025 09:44:52 02/01/2025 09:58:48 Lumbar disc prolapse with radiculopathy 788497114 M51.16 [id number] MD JOHN Rom[address] [address] 03/01/2025 11:02:21 03/01/2025 11:18:13 History of lumbar discectomy 3713877891 5929170 Z98.243 [id number] Right L4-5 January 20, 2025 Health Concerns Section Related Observation LastModified by Organization Detai ls LastModified Time None Recorded Concern Status LastModified by Organization Details LastModified Time None Recorded Advance Directives Directive None Recorded Payers Insurance Date Sequence Insurance Name Policy Number Policy Prince Covered Member ID Prince Member ID Guarantor Name 02/26/2025 1 [facility] (MEDICARE REPLACEMENT/A DVANTAGE - PPO) [id number] Shamika Marie [id number] Shamika Marie Notes Date Note Type Note [...] ALEX HUI PA-C [address], [place], [address], [place] [facility] 12/28/2024 10:20:40 OBGyn Episode No OBEpisode recorded.
--- OUTSIDE RECORDS SUMMARY | 2025-10-27 11:26 | XMS_ITS | Clinical Summary ---
Author Organization [facility] Prior to 04/10/25 Address [address] [place] [address] Care Team Providers Care Food And Nutrition Supervisor Name Role Phone Ling Kellogg MD Primary Care Provider [phone] Allergies Active Allergy Reactions Criticality Noted Date Comments Clarithromycin 09/09/2015 Medications Medication Sig Dispensed Refills Start Date End Date Status calcium acetate (PHOSLO) 667 MG capsule Take 1,334 mg by mouth 3 (three) times a day with meals. 0 Active b ozfspqz-V-ptywo acid 1 MG capsule Take 1 capsule by mouth daily. 0 Active Fish Oil-Cholecalciferol (FISH OIL + D3) 4126-7943 MG-UNIT CAPS Take by mouth. 0 Active [...] Advance Directives For more information, please contact: [phone] Documents on File Type Date Recorded Patient Assembler Brazer Expl anation Advance Directive and Living Will 04/27/2016 1:07 PM Care Teams Food And Nutrition Supervisor Relationship Specialty Start Date End Date Lign Kellogg MD PCP - General Compressor Repairer 06/20/15
--- OUTSIDE RECORDS SUMMARY | 2025-10-27 11:26 | XMS_ITS | Clinical Summary ---
Author Organization [facility] Address [address] [place] [address] Care Team Providers Care Venue Manager Name Role Phone Pcp, No MD Primary [...] to complete this topic Insurance Care Teams Venue Manager Relationship Specialty Start Date End Date Laureen Elizondo MD [address] [place] [address] PCP - General 02/11/18
[2025-10-27 20:57] VITALS: BP 120/78
== END 2025-10-27 15:46 | disposition home or self-care (01) ==
LOC: HO.HMCC 09:46
PROVIDERS: PCP Internal Medicine; Visit Provider Internal Medicine
DX: Z00.00 Encounter for general adult medical examination without abnormal findings (principal); F41.9 Anxiety disorder, unspecified; M06.9 Rheumatoid arthritis, unspecified

== ENCOUNTER → 2025-10-27 09:45 | Outpatient (BNVA) | payer MEDICARE, SELFPAY | PROVIDERS: PCP Internal Medicine; Visit Provider Internal Medicine | DX: Z00.00 Encounter for general adult medical examination without abnormal findings (principal); F41.9 Anxiety disorder, unspecified; M06.09 Rheumatoid arthritis without rheumatoid factor, multiple sites | CPT/HCPCS: 99397 ==